=== PATIENT | male | born 1950 | race Caucasian/White ===

== ENCOUNTER → 2016-06-25 | Outpatient (CLI) | payer OTHER ==
[~2016-06-25] MED LIST: ALPR0.25 PO; ASPCH81X PO; GLIP10TA3 PO; INSU1INJ33; LISI-787 PO; MULT-506 PO; OMEG10007 PO; OMEG340C PO; PRAV20TA PO; SITA1TAB27 PO
[2016-06-25 13:35] LABS: ESTIMATED AVERAGE GLUCOSE 148 mg/dl; HA1C FLAG Normal (Normal)
[2016-06-25 13:54] LABS: ALKALINE PHOSPHATASE 109 U/L (45-117); ALT/SGPT 41 U/L (12-78); AST/SGOT 25 U/L (15-37); BLOOD UREA NITROGEN 25 mg/dl (7-18); BUN/CREATININE RATIO 15.6 (10-20); CALCIUM 9.1 mg/dl (8.5-10.1); CARBON DIOXIDE 26 mmol/L (21-32); CHLORIDE 104 mmol/L (98-107); GLUCOSE 111 mg/dl (70-99); POTASSIUM 3.9 mmol/L (3.5-5.1); SODIUM 141 mmol/L (136-145)
[2016-06-25 14:01] LABS: CHOLESTEROL 145 mg/dl (0-200); CHOLESTEROL/HDL RATIO 3.5; HDL CHOLESTEROL 41 mg/dl; LDL CHOLESTEROL CALCULATED 74 mg/dl; TRIGLYCERIDES 149 mg/dl (0-150); VERY LOW DENSITY LIPOPROT CALC 30 mg/dl
== END | disposition home or self-care (01) ==
LOC: C.LABMFLN 10:06
PROVIDERS: ATTEND Family Medicine
DX: E11.9 Type 2 diabetes mellitus without complications (principal); E78.5 Hyperlipidemia, unspecified; I10 Essential (primary) hypertension; E78.00 Pure hypercholesterolemia, unspecified; Z12.5 Encounter for screening for malignant neoplasm of prostate

== ENCOUNTER → 2016-10-31 | Outpatient (CLI) | payer OTHER ==
[2016-10-31 14:41] LABS: ESTIMATED AVERAGE GLUCOSE 169 mg/dl; HA1C FLAG Normal (Normal)
[2016-10-31 14:46] LABS: ALT/SGPT 38 U/L (12-78); BLOOD UREA NITROGEN 31 mg/dl (7-18); BUN/CREATININE RATIO 17.4 (10-20); CALCIUM 9.2 mg/dl (8.5-10.1); CARBON DIOXIDE 26 mmol/L (21-32); CHLORIDE 103 mmol/L (98-107); CHOLESTEROL 163 mg/dl (0-200); GLUCOSE 77 mg/dl (70-99); POTASSIUM 4.2 mmol/L (3.5-5.1); SODIUM 139 mmol/L (136-145); TRIGLYCERIDES 209 mg/dl (0-150); VERY LOW DENSITY LIPOPROT CALC 42 mg/dl
[2016-10-31 14:49] LABS: ALB/GLOB RATIO 1.1 (0.9-2); ALKALINE PHOSPHATASE 94 U/L (45-117); AST/SGOT 18 U/L (15-37); CHOLESTEROL/HDL RATIO 4.5; HDL CHOLESTEROL 36 mg/dl; LDL CHOLESTEROL CALCULATED 85 mg/dl
== END | disposition home or self-care (01) ==
LOC: C.LABMFLN 07:20
PROVIDERS: ATTEND Family Medicine
DX: E11.9 Type 2 diabetes mellitus without complications (principal); E78.00 Pure hypercholesterolemia, unspecified

== ENCOUNTER → 2016-12-02 | Outpatient (CLI) | payer OTHER | END | disposition home or self-care (01) | LOC: C.PATHSPEC 17:20 | PROVIDERS: ATTEND Plastic Surgery | DX: C44.329 Squamous cell carcinoma of skin of other parts of face (principal) ==

== ENCOUNTER → 2016-12-17 | Outpatient (CLI) | payer OTHER ==
[2016-12-17 13:10] LABS: BASO % 0.3 %; BASO ABS # 0.02 K/uL (0-0.2); COMPLETE YES; EOS % 2.8 %; HEMATOCRIT 40.6 % (42-52); IG% 0.3 %; LYMPH ABS # 1.56 K/uL (1.2-3.4); MEAN CELL VOLUME 85.3 fL (80-100); MEAN CORPUSCULAR HEMOGLOBIN 31.7 pg (25-34); MEAN CORPUSCULAR HGB CONC 37.2 g/dl (32-36); MEAN PLATELET VOLUME 10.4 fL (7.4-10.4); MONO % 12.4 %; NEUT % 62.2 %; PLATELET COUNT 169 K/uL (130-400); RED BLOOD COUNT 4.76 M/uL (4.7-6.1); WHITE BLOOD COUNT 7.08 K/uL (4.8-10.8)
[2016-12-17 13:23] LABS: PROTHROMBIN TIME (PATIENT) 10.7 SECONDS (9.0-12.0)
[2016-12-17 13:41] LABS: BLOOD UREA NITROGEN 24 mg/dl (7-18); GLUCOSE 230 mg/dl (70-99)
[2016-12-17 13:42] LABS: BUN/CREATININE RATIO 13.6 (10-20); CALCIUM 9.3 mg/dl (8.5-10.1); CARBON DIOXIDE 30 mmol/L (21-32); CHLORIDE 101 mmol/L (98-107); POTASSIUM 4.1 mmol/L (3.5-5.1); SODIUM 138 mmol/L (136-145)
== END | disposition home or self-care (01) ==
LOC: C.CPL 12:37
PROVIDERS: ATTEND Plastic Surgery
DX: L98.9 Disorder of the skin and subcutaneous tissue, unspecified (principal); I49.3 Ventricular premature depolarization

== ENCOUNTER → 2016-12-23 | Day surgery (SDC) | payer OTHER ==
[2016-12-22 10:21] VITALS: Ht 175.3 cm; Wt 103.6 kg
[~2016-12-23] VITALS: Ht 175.3 cm; Wt 103.6 kg
[~2016-12-23] MED LIST changes: +ALPRAZOLAM 0.25 MG TAB PO PRN; +ATROPINE SULFATE 0.1 MG/ML 5ML SYR IV PRN; +BACITRACIN OINT 15 GM TUBE ONE; +CEFAZOLIN 2000 MG/60 ML D5W IV SCH; +EpHEDrine SULFATE INJ 50 MG/ML AMP IV PRN; +FENTANYL CITRATE INJ 50 MCG/1 ML 2 ML VIAL IV PRN; +FENTANYL CITRATE INJ 50 MCG/1 ML 2 ML VIAL ONE; +FLUMAZENIL 0.1 MG/1 ML 10 ML VIAL IV PRN; +GENTIAN VIOLET TOP SOLN DROP CHARGE TOP ONE; +HYDROCODONE/ACETAMOPHEN 5/325MG TAB PO PRN; +HYDROmorphone INJ 2 MG/ML SYR/VIAL IV PRN; +INSULIN HUMAN REGULAR SC SCH; +LABETALOL HCL IV 5 MG/ML 20ML IV PRN; +LACTATED RINGER'S 1000ML 1,000 ML IV SCH; +LIDOCAINE HCL 2% 2 ML VIAL (20MG/ML) ONE; +LIDOCAINE/EPINEPHRINE 1% INJ 50 ML VIAL ONE; +LISINOPRIL/HCTZ 20/12.5MG TAB PO SCH; +MEPERIDINE HCL 25 MG/ML CARP IV PRN; +METOCLOPRAMIDE HCL INJ 5 MG/ML 2 ML VIAL IV PRN; +MIDAZOLAM HCL 1 MG/ML 2ML VIAL ONE; +MULTIVITAMIN TAB PO SCH; +MoRPHine SULFATE 2 MG/ML CARP IV PRN; +MoRPHine SULFATE 4 MG/ML 1 ML CARP\\VIAL IV PRN; +NALOXONE HCL 0.4 MG/1 ML VIAL/CARP IV PRN; +NovoLIN-R INSULIN PER UNIT CHARGE ONE; +ONDANSETRON INJ 2 MG/ML 2 ML VIAL IV PRN; +PATIENT'S ALLERGY INFO NEEDS ENTERED SCH; +PHENYLEPHRINE 100MCG/ML 5ML SYR IV PRN; +POVIDONE-IODINE OP SOLN 30 ML BTL ONE; +PRAVASTATIN SOD 20 MG TAB PO SCH; +PROPOFOL IV EMULSION 10 MG/ML 20 ML VIAL IV ONE; +SITAGLIPTIN 100 MG TAB PO SCH; +SODIUM CHLORIDE 0.9% 1000ML 1,000 ML IV SCH
--- NOTE | 2016-12-23 08:32 | History & Physical Bridge - [place] ---
H&P Re-Evaluation Bridge Note: I have examined the patient, reviewed the History & Physical and in the interval since the performance of the History & Physical I have noted the following changes of clinical significance: No changes noted
--- NOTE | 2016-12-23 10:57 | [facility] Post Operative Brief Note ---
Immediate Operative Summary Operative Date Dec 23, 2016. Pre-Operative Diagnosis Left Forehead Squamous Cell Carcinoma Post-Operative Diagnosis same Procedure(s) Performed Left Forehead Excison Squamous Cell Carcinoma, Frozen Section, Rotational Flap Closure Surgeon Dr Ibrahim Coupon Clerk Surgeon(s) none Estimated Blood Loss 25ml Findings well differentiated SCC, all margins negative Specimens A: Excision squamous cell carcinoma left forehead stitch armando 12 o'clock B: Old deep margin left forehead Anesthesia local with sedation Complication(s) None Disposition Recovery Room / PACU
--- NOTE | 2016-12-23 11:04 | Anesthesia Progress Nt - [facility] ---
Anesthesia Post Op Note Date & Time Dec 23, 2016 at 11:04 Vital Signs Pain Intensity: 0 Vital Signs Past 12 Hours Date Time Temp Pulse Resp B/P (MAP) Pulse Ox O2 Delivery O2 Flow Rate FiO2 12/23/16 07:20 36.8 93 16 128/93 (105) 95 Room Air Notes Mental Status: alert / awake / arousable, participated in evaluation Pt Amnestic to Procedure: Yes Nausea / Vomiting: adequately controlled Pain: adequately controlled Airway Patency, RR, SpO2: stable & adequate BP & HR: stable & adequate Hydration State: stable & adequate Anesthetic Complications: no major complications apparent
--- NOTE | 2016-12-23 11:19 | Discharge Instructions-SurgCtr ---
Discharge Instructions Date of Service Dec 23, 2016. Visit Reason for Visit: Left Forehead Squamous Cell Carcinoma Discharge Discharge Diagnosis / Problem: squamous cell carcinoma left forehead Discharge Goals Goal(s): Decrease discomfort, Improve function Medications Stopped Medications Name(s): Arsen Keene 12/17/16. Activity Recommendations Activity Limitations: as noted below Anesthesia . Post Anesthesia Instructions: If you have had General Anesthesia or IV Sedation: * Do not drive today. * Resume driving when surgeon permits. * Do not make important decisions or sign legal documents today. * Call surgeon for: 1. Temperature elevations greater than 101 degrees F. 2. Uncontrollable pain. 3. Excessive bleeding. 4. Persistent nausea and vomiting. 5. Medication intolerance (nausea, vomiting or rash). * For nausea and vomiting use only clear liquids such as: tea, soda, bouillon until nausea subsides, then gradually increase diet as tolerated. * If you have any concerns or questions, call your surgeon's office. If physician is unavailable and it is an emergency, call 911 or go to the nearest emergency room. . Instructions / Follow-Up Instructions / Follow-Up ACTIVITY RECOMMENDATIONS: __Normal activities _x_No bending, lifting or straining __No driving _x_Driving allowed when you are off pain medications _x_Walking permitted __You should have help at home for ___ days DRESSINGS: __No dressings required _x_Keep dressings dry/in place until first office visit __Remove dressings ___ and leave dressings off __Apply ice ___ days __Remove dressings and reapply garment __Apply antibiotic ointment (Bacitracin, Neosporin, etc) to wounds 3-4 times/ day for 10 days BATHING: _x_Keep dressings dry _x_Sponge bathing permitted __Showering permitted _x_No swimming, hot tubs or soaking in a tub MEDICATIONS: Resume previous medications unless instructed otherwise by your surgeon. __Do not use aspirin, Motrin, Advil or Ibuprofen as these may promote bleeding. Please use Tylenol. _x_Prescription(s) provided: pain script provided in office OTHER INSTRUCTIONS: __Record drain output 2-3 times per day SPECIAL CARE INSTRUCTIONS: * It is normal to have a mild fever after surgery. If your temperature is higher than 101.5 degrees F, please call the office at [phone]. * Constipation is a typical side effect of pain medication. An over-the- counter stool softener will help relieve this. * Leaking around surgical drains may occur and should not cause concern. Sometimes these drains become clogged. If this happens, remove the bulb and milk the clot out of the tube, then replace the bulb. * Drainage from wounds after liposuction is normal and should be expected. Garments will become soiled. You should protect furniture and bedding. This drainage should mostly subside within 2-3 days. Leave garments in place unless instructed to remove them. * If you have unusual drainage from a wound or are concerned you have an infection or have any questions or concerns, please call the office at [phone]. FOLLOW UP VISIT: If not already scheduled, please call the office, , when you return home after surgery to schedule an appointment to be seen in _2__ days. Diet Recommendations Home Diet: diabetes diet Procedures Procedures Performed: Left Forehead Excison Squamous Cell Carcinoma, Frozen Section, Rotational Flap Closure Pending Studies Studies pending at discharge: no Medical Emergencies . Who to Call and When: Medical Emergencies: If at any time you feel your situation is an emergency, please call 911 immediately. . Non-Emergent Contact Non-Emergency issues call your: Primary Care Provider, Surgeon Call Non-Emergent contact if: temperature is above 101.5, your pain is not controlled, wound has increased drainage . . "Provider Documentation" section prepared by Sailaja Ibrahim. . [place] Drug Monitoring Program Drug Monitoring Findings: PDMP checked, no issues identified
[2016-12-23 11:30] VITALS: BP 122/77; PULSE 77; TEMP 36.3; O2SAT 96
--- NOTE | 2016-12-24 11:08 | OPERATIVE REPORT ---
DATE OF OPERATION: 12/23/2016 PREOPERATIVE DIAGNOSIS: Left forehead squamous cell carcinoma. POSTOPERATIVE DIAGNOSIS: Same. PROCEDURE: Excision squamous cell carcinoma left forehead with frozen section and flap closure. SURGEON: Dr. Sailaja Ibrahim. SCREEN MACHINE OPERATOR: VEL Langston. ANESTHESIA: Local with sedation. COMPLICATIONS: None. INDICATION FOR THE PROCEDURE: The patient is a 66-year-old male who presented to my office at the request of his primary care physician regarding an enlarging lesion of the left forehead. Biopsy of this lesion showed squamous cell carcinoma. Given its large size and location, we elected to proceed with further excision in the operating room with frozen section. BRIEF DESCRIPTION OF THE PROCEDURE: Risks, benefits and alternatives of the procedure were explained to the patient who agreed and signed consent. He was identified and marked in the preoperative holding area. He was brought to the operating room where he was positioned supine and placed under sedation without incident. Surgical site was prepped and draped sterilely. A timeout procedure was performed. Planned excision was marked. This included the prior biopsy site as well as peripheral erythema and an area of adjacent skin changes concerning for at least squamous cell carcinoma in situ. Lidocaine 1% with epinephrine was used to anesthetize the area. A 15 blade scalpel made the incision into underlying subcutaneous fat. Lesion was removed at this level. Of note, centrally, underneath the lesion, lesion appeared to be transected during this excision. Therefore, the skin was sent to the lab for frozen section with suture marking at 12 o'clock and a second deep margin specimen was immediately sent which included some of the frontalis muscle. The maximal excision diameter was 4 x 2 cm. Hemostasis was achieved with electrocautery. Following a phone call from the laboratory revealing well-differentiated squamous cell carcinoma with negative peripheral and deep margins, wound closure was begun. The wound was oriented predominantly horizontally with the medial aspect being somewhat more narrow and with a semicircular shape inferiorly. Therefore, I was able to advance a portion of this for primary closure using the natural rotation of the prior skin incision. However, laterally, wound was quite wide and would be unable to be closed primarily without significantly elevating the left eyebrow. Therefore, a rotational flap was designed using skin from the lateral forehead. Lidocaine 1% with epinephrine was used to anesthetize the planned incisions. A 15 blade scalpel made the incision and flap was raised in the subcutaneous plane. It was advanced into the defect. Undermining was performed cephalad toward the scalp to help facilitate closure of the donor site. The flap was inset and the medial aspect of the wound was closed using 4-0 Vicryl interrupted sutures. Skin was closed using 6-0 Prolene interrupted sutures and running suture. At the end of the case, flaps appeared viable and wound was well approximated with only minimal elevation of the left eyebrow. Bacitracin and Telfa dressing were applied. The procedure was tolerated well. The patient was awakened and transferred to recovery in satisfactory condition. I attest to the content of the Intraoperative Record and any orders documented therein. Any exception s are noted below.
== END | disposition home or self-care (01) ==
LOC: X.SURG 06:46
PROVIDERS: ATTEND Plastic Surgery
DX: C44.329 Squamous cell carcinoma of skin of other parts of face (principal); E11.9 Type 2 diabetes mellitus without complications; I10 Essential (primary) hypertension; K21.9 Gastro-esophageal reflux disease without esophagitis; Z79.82 Long term (current) use of aspirin; Z79.899 Other long term (current) drug therapy

== ENCOUNTER → 2017-04-10 | Outpatient (CLI) | payer OTHER ==
[~2017-04-10] MED LIST changes: -ALPRAZOLAM 0.25 MG TAB PO PRN; -ASPCH81X PO; -ATROPINE SULFATE 0.1 MG/ML 5ML SYR IV PRN; -BACITRACIN OINT 15 GM TUBE ONE; -CEFAZOLIN 2000 MG/60 ML D5W IV SCH; -EpHEDrine SULFATE INJ 50 MG/ML AMP IV PRN; -FENTANYL CITRATE INJ 50 MCG/1 ML 2 ML VIAL IV PRN; -FENTANYL CITRATE INJ 50 MCG/1 ML 2 ML VIAL ONE; -FLUMAZENIL 0.1 MG/1 ML 10 ML VIAL IV PRN; -GENTIAN VIOLET TOP SOLN DROP CHARGE TOP ONE; -HYDROCODONE/ACETAMOPHEN 5/325MG TAB PO PRN; -HYDROmorphone INJ 2 MG/ML SYR/VIAL IV PRN; -INSULIN HUMAN REGULAR SC SCH; -LABETALOL HCL IV 5 MG/ML 20ML IV PRN; -LACTATED RINGER'S 1000ML 1,000 ML IV SCH; -LIDOCAINE HCL 2% 2 ML VIAL (20MG/ML) ONE; -LIDOCAINE/EPINEPHRINE 1% INJ 50 ML VIAL ONE; -LISINOPRIL/HCTZ 20/12.5MG TAB PO SCH; -MEPERIDINE HCL 25 MG/ML CARP IV PRN; -METOCLOPRAMIDE HCL INJ 5 MG/ML 2 ML VIAL IV PRN; -MIDAZOLAM HCL 1 MG/ML 2ML VIAL ONE; -MULTIVITAMIN TAB PO SCH; -MoRPHine SULFATE 2 MG/ML CARP IV PRN; -MoRPHine SULFATE 4 MG/ML 1 ML CARP\\VIAL IV PRN; -NALOXONE HCL 0.4 MG/1 ML VIAL/CARP IV PRN; -NovoLIN-R INSULIN PER UNIT CHARGE ONE; -OMEG10007 PO; -OMEG340C PO; -ONDANSETRON INJ 2 MG/ML 2 ML VIAL IV PRN; -PATIENT'S ALLERGY INFO NEEDS ENTERED SCH; -PHENYLEPHRINE 100MCG/ML 5ML SYR IV PRN; -POVIDONE-IODINE OP SOLN 30 ML BTL ONE; -PRAVASTATIN SOD 20 MG TAB PO SCH; -PROPOFOL IV EMULSION 10 MG/ML 20 ML VIAL IV ONE; -SITAGLIPTIN 100 MG TAB PO SCH; -SODIUM CHLORIDE 0.9% 1000ML 1,000 ML IV SCH
[2017-04-10 13:08] LABS: ESTIMATED AVERAGE GLUCOSE 212 mg/dl; HA1C FLAG Normal (Normal)
[2017-04-10 13:20] LABS: ALT/SGPT 61 U/L (12-78); AST/SGOT 43 U/L (15-37); BLOOD UREA NITROGEN 30 mg/dl (7-18); BUN/CREATININE RATIO 16.4 (10-20); CALCIUM 8.9 mg/dl (8.5-10.1); CARBON DIOXIDE 29 mmol/L (21-32); CHLORIDE 103 mmol/L (98-107); CHOLESTEROL 150 mg/dl (0-200); CREATININE 1.82 mg/dl (0.60-1.40); GLUCOSE 155 mg/dl (70-99); POTASSIUM 4.1 mmol/L (3.5-5.1); SODIUM 136 mmol/L (136-145)
[2017-04-10 13:22] LABS: ALKALINE PHOSPHATASE 119 U/L (45-117); CHOLESTEROL/HDL RATIO 4.1; HDL CHOLESTEROL 37 mg/dl; LDL CHOLESTEROL CALCULATED 67 mg/dl; TRIGLYCERIDES 229 mg/dl (0-150); VERY LOW DENSITY LIPOPROT CALC 46 mg/dl
== END | disposition home or self-care (01) ==
LOC: C.LABMFLN 08:22
PROVIDERS: ATTEND Family Medicine
DX: E11.9 Type 2 diabetes mellitus without complications (principal); I10 Essential (primary) hypertension; E78.00 Pure hypercholesterolemia, unspecified

== ENCOUNTER → 2017-08-25 | Outpatient (CLI) | payer OTHER ==
[2017-08-25 13:26] LABS: BLOOD UREA NITROGEN 25 mg/dl (7-18); CREATININE 1.82 mg/dl (0.60-1.40); GLUCOSE 159 mg/dl (70-99)
[2017-08-25 13:27] LABS: ALBUMIN 3.7 gm/dl (3.4-5.0); ALT/SGPT 53 U/L (12-78); AST/SGOT 35 U/L (15-37); CALCIUM 9.1 mg/dl (8.5-10.1); CARBON DIOXIDE 29 mmol/L (21-32); CHOLESTEROL 146 mg/dl (0-200); POTASSIUM 3.8 mmol/L (3.5-5.1); SODIUM 139 mmol/L (136-145)
[2017-08-25 13:30] LABS: HEMOGLOBIN A1C 8.2 % (4.5-5.6)
[2017-08-25 13:31] LABS: ALKALINE PHOSPHATASE 105 U/L (45-117); LDL CHOLESTEROL CALCULATED 68 mg/dl; TOTAL PROTEIN 7.2 gm/dl (6.4-8.2)
== END | disposition home or self-care (01) ==
LOC: C.LABMFLN 09:21
PROVIDERS: ATTEND Family Medicine
DX: E11.9 Type 2 diabetes mellitus without complications (principal); E78.5 Hyperlipidemia, unspecified; I10 Essential (primary) hypertension; Z12.5 Encounter for screening for malignant neoplasm of prostate

== ENCOUNTER 2023-08-12 16:21 | Inpatient (IN) ==
--- NOTE | 2023-08-12 16:29 | ED Triage Note ---
Date of Service August 12, 2023 Provider in Triage Author: Kristen Pollack History of Present Illness This patient was briefly evaluated while in triage. An abbreviated physical exam was performed. This patient is a 73-year-old Male who presents to the ED for evaluation of SOB intermittently for the past couple of days as well as weakness. Denies chest pain. Denies abdominal pain, nausea, or vomiting. Has been losing a lot of weight. History of metastatic melanoma to multiple areas. History of radiation and chemo in the past, but not on anything currently. He keeps filling up with fluid in his abdomen and legs per and his legs feel very swollen and heavy. Not eating well and losing weight. He is on Plavix. Physical Exam GENERAL: Chronically ill in appearance, but in no acute distress. HEENT: Pupils equal. No obvious scleral icterus. HEART: Regular rate and rhythm. LUNGS: Clear to auscultation. No accessory muscle use. ABDOMEN: Soft, mildly tender to palpation. NEURO: Alert and oriented. No obvious neurological deficits on quick neuro exam. MUSCULOSKELETAL: Bilateral lower extremities edematous. Initial orders for labs and / or imaging were placed and patient was placed in the waiting area until a bed is available. Please see further documentation for the full ED course. MDM / Impression Impression Impression: Influenza, Hypoglycemia, Metastatic melanoma, Pleural effusion, Pathologic rib fracture Impression: Pathologic rib fracture Qualifiers: Encounter type: initial encounter Qualified Code(s): M84.48XA - Pathological fracture, other site, initial encounter for fracture
[2023-08-12 17:26] LABS: Basophils # (auto) 0.03 K/uL (0.00-0.20); Basophils % (auto) 0.3 %; Eosinophils # (auto) 0.04 K/uL (0.00-0.50); Eosinophils % (auto) 0.4 %; Hematocrit (blood only) 42.4 % (42.0-52.0); Hemoglobin 15.1 g/dl (14.0-18.0); Immature Granulocytes # (auto) 0.06 K/uL (0.01-0.20); Immature Granulocytes % (auto) 0.6 %; Lymphocytes # (auto) 1.08 K/uL (1.20-3.40); Mean Corpuscular Hemoglobin 31.9 pg (25.0-34.0); Mean Corpuscular Hgb Conc 35.6 g/dL (32.0-36.0); Mean Corpuscular Volume 89.5 fL (80.0-100.0); Monocytes % (auto) 9.1 %; Neutrophils # (auto) 7.73 K/uL (1.40-6.50); Neutrophils % (auto) 78.6 %; Platelet Count 276 K/uL (130-400); RDW Standard Deviation 55.4 fL (36.4-46.3); Red Blood Count 4.74 M/uL (4.70-6.10); White Blood Count 9.84 K/ul (4.8-10.8)
[2023-08-12 17:38] LABS: INR 1.1 (0.9-1.1); Partial Thromboplastin Ratio 1.1; Partial Thromboplastin Time 30 Seconds (21-31); Prothrombin Time 12.1 Seconds (9.0-12.0)
[2023-08-12 17:41] LABS: Albumin Level 2.8 gm/dl (3.4-5.0); Anion Gap 12 (3-11); Bilirubin,Total 3.7 mg/dl (0.2-1.0); Calcium 8.7 mg/dl (8.6-10.3); Carbon Dioxide 31 mmol/L (21-32); Chloride 93 mmol/L (98-107); Magnesium 1.7 mg/dl (1.7-2.4); Potassium 3.3 mmol/L (3.5-5.1); Sodium 136 mmol/L (136-145)
[2023-08-12 17:51] LABS: Alanine Aminotransferase 37 U/L (7-52); Albumin Globulin Ratio 0.9 (0.9-2); Alkaline Phosphatase 709 U/L (34-104); Aspartate Aminotransferase 80 U/L (13-39); BUN Creatinine Ratio 35.8 (10-20); Blood Urea Nitrogen 44 mg/dl (6-23); Est GFR (African American) 66.1 ml/min; Est GFR (Non-African American) 57.1 ml/min; Globulin 3.2 gm/dl (2.5-4.0); Glucose 38 mg/dl (70-99(Fasting)); Lipase 21 U/L (11-82)
[2023-08-12 17:56] LABS: Troponin I High Sensitivity 18.7 pg/ml (0-20)
[2023-08-12] MEDS: DEXTROSE 50% 50 ML SYRINGE IV ONE (18:14)
--- NOTE | 2023-08-12 18:25 | Emergency Department Note ---
History of Present Illness General Chief Complaint: Shortness of Breath/Dyspnea Stated Complaint: SOB/FLUID BUILD UP,CANCER PATIENT, EDEMA HAND/FEET Time Seen by Provider: 08/12/23 18:05 History of Present Illness Provider Complaint: shortness of breath Onset (ago): week(s) (2) Consistency/Duration: + progressively worsening Relieved By: + nothing Exacerbated By: + exertion and + coughing Known history of: congestive heart failure Associated symptoms: + cough; no fever, no wheezing, no sputum production, no lower extremity pain, no polyuria, no nausea/vomiting or no abdominal pain HPI Narrative: Patient has metastatic melanoma that has metastasized to his lungs liver and bones. at bedside reports that the patient was recently admitted to [facility] [address] and she states that all they did was give him Oxy IR and she took him off of it because she did not like that it was making him more tired and confused. reports no recent fall or trauma Home Medications Medication Instructions Recorded Confirmed Type pen needle, diabetic 31 gauge x #100 ea 11/23/18 08/12/23 Rx 5/16" (BD Ultra-Fine Short Pen Needle) hydrocortisone 2.5 % topical cream 1 appln IA BID PRN hemorrhoids #30 03/31/19 08/12/23 Rx with perineal applicator grams blood sugar diagnostic #200 ea 01/21/22 08/12/23 Rx nitroglycerin 0.4 mg sublingual 0.4 mg sublingual Q5M PRN chest 07/23/22 08/12/23 Rx tablet (Nitrostat) pain #25 tabs atorvastatin 20 mg tablet 20 mg PO HS #90 tabs 01/18/23 08/12/23 Rx magnesium oxide 400 mg PO DAILY #90 tabs 01/23/23 08/12/23 Rx clopidogrel 75 mg tablet 75 mg PO DAILY #90 tabs 05/13/23 08/12/23 Rx Lift Chair #1 ea 06/04/23 08/12/23 Rx elevated toilet seat with support #1 ea 06/04/23 08/12/23 Rx rails furosemide 40 mg tablet 40 mg PO DAILY #90 tabs 06/29/23 08/12/23 Rx acetaminophen 325 mg capsule 650 mg PO QID PRN Fever Or Pain 06/30/23 08/12/23 History loratadine 10 mg tablet (Claritin) 10 mg PO DAILY 06/30/23 08/12/23 History montelukast 10 mg tablet 10 mg PO QPM 06/30/23 08/12/23 History (Singulair) insulin NPH-regular 70-30 U-100 See Rx Instructions subcut .COMPLEX 07/09/23 08/12/23 History insulin 100 unit/mL subcutaneous pen naloxone 4 mg/actuation nasal 4 mg intranasal Q3M PRN opioid 07/09/23 08/12/23 Rx spray (Narcan) overdose #2 ea spironolactone 25 mg tablet 25 mg PO DAILY #90 tabs 07/30/23 08/12/23 Rx pantoprazole 20 mg tablet,delayed 20 mg PO DAILY #30 tabs 08/04/23 08/12/23 Rx release alprazolam 0.25 mg tablet 0.25 mg PO TID PRN anxiety #90 tabs 08/10/23 08/12/23 Rx aspirin 81 mg tablet,delayed 81 mg PO DAILY 08/12/23 08/12/23 History release oseltamivir 75 mg capsule (Tamiflu) 75 mg PO BID 5 days #10 caps 08/12/23 Rx tramadol 50 mg tablet 50 - 100 mg PO TID PRN pain 08/12/23 08/12/23 History trazodone 50 mg tablet 50 mg PO HS 08/12/23 08/12/23 History Allergies Allergy/AdvReac Type Severity Reaction Status Date / Time rosuvastatin [From Crestor] AdvReac Intermediate myalgia Verified 08/12/23 22:49 escitalopram AdvReac Mild Insomnia Verified 08/12/23 22:50 Past Med/Surg History Medical History Clavicular fracture Confusion Subarachnoid hemorrhage Right humeral fracture HFrEF (heart failure with reduced ejection fraction) Neurologic gait dysfunction Metastatic melanoma Right fibular fracture Pelvic mass Metastatic carcinoma Abnormal CT scan, chest Abnormal x-ray of thoracic spine Abnormal chest x-ray Left-sided chest wall pain Thoracic radiculopathy Pain of left scapula Myalgia Left shoulder pain Bilateral shoulder pain Coronary artery disease Chest pain Type 2 diabetes mellitus treated with insulin Cough Asymptomatic microscopic hematuria Medicare annual wellness visit, subsequent Prostate cancer screening COVID-19 virus infection Tested positive on March 23, 2020 Herpes zoster of eye Exposure to COVID-19 virus History of SCC (squamous cell carcinoma) of skin Personal history of malignant melanoma of skin Actinic keratoses Asthmatic bronchitis Benign essential hypertension Eye problems GERD without esophagitis Hypercholesterolemia Hyperlipidemia Need for influenza vaccination Open wound, hand Prostate cancer screening Type 2 diabetes mellitus Surgical History Status post coronary artery stent placement Hx of cataract removal with insertion of prosthetic lens bilat Mar 2022 History of tonsillectomy History of adenoidectomy History of shoulder surgery History of elbow surgery History of arthroscopy of right knee History of decompression of median nerve Family History Other No pertinent family history Social History Smoking Status: Never smoker Hx Alcohol Use: No Hx Substance Use: No Preferred Language: Uzbek Communication Ability: Effective Visual Impairment: No Limitations Hearing Ability: Normal Concrete Craftsman Required: No Beliefs That Will Affect Care: None marital status: Current Living Situation: Spouse current occupational status: employed and retired How many Children do You have Comment: 1 adopted daughter Feels Safe at Home: Yes Childhood Exposure to Second-Hand Smoke: No Diet: regular caffeine: No Dental Care, Regularly: Yes Physical Activity Frequency: Does not Exercise Seatbelt Use: always Sunscreen Use: Yes Assistive Devices: Glasses Physical Exam 2 Vital Signs: Vital Signs - 24 hr 08/12/23 16:25 08/12/23 16:25 08/12/23 16:25 Temperature 36.2 C L Temperature Source Temporal Artery Sc an Pulse Rate 90 Pulse Rate [Apical ] Pulse Rate from Sp O2 Sensor Pulse Rhythm [Apic al] Respiratory Rate 16 Respiratory Effort / Characteristics Non-Labored Sponta neous Non-Labored Sponta neous Respiratory Depth Normal Respiratory Patter n Blood Pressure 102/67 Blood Pressure [Ri ght Arm] Blood Pressure Danii n 78 Blood Pressure Danii n [Right Arm] Blood Pressure Pos ition [Right Arm] Pulse Oximetry 94 94 Oxygen Delivery Me thod Room Air Room Air Sepsis New/Unexpla ined Change in Men pj Status No Sepsis Action Take n by Nursing No Action Required 08/12/23 18:11 08/12/23 18:23 08/12/23 18:29 Temperature Temperature Source Pulse Rate 89 Pulse Rate [Apical ] 87 Pulse Rate from Sp O2 Sensor Pulse Rhythm [Apic al] Respiratory Rate 18 Respiratory Effort / Characteristics Non-Labored Sponta neous Respiratory Depth Normal Respiratory Patter n Regular Blood Pressure Blood Pressure [Ri ght Arm] 120/75 Blood Pressure Danii n Blood Pressure Danii n [Right Arm] 90 Blood Pressure Pos ition [Right Arm] Pulse Oximetry 96 Oxygen Delivery Me thod Room Air Room Air Sepsis New/Unexpla ined Change in Men pj Status Sepsis Action Take n by Nursing 08/12/23 19:30 08/12/23 19:30 08/12/23 20:00 Temperature Temperature Source Pulse Rate 76 78 Pulse Rate [Apical ] Pulse Rate from Sp O2 Sensor 76 77 Pulse Rhythm [Apic al] Respiratory Rate 20 18 Respiratory Effort / Characteristics Respiratory Depth Respiratory Patter n Blood Pressure 108/63 Blood Pressure [Ri ght Arm] Blood Pressure Danii n 83 Blood Pressure Danii n [Right Arm] Blood Pressure Pos ition [Right Arm] Pulse Oximetry 93 93 Oxygen Delivery Me thod Room Air Sepsis New/Unexpla ined Change in Men pj Status Sepsis Action Take n by Nursing 08/12/23 20:00 08/12/23 20:30 08/12/23 20:30 Temperature Temperature Source Pulse Rate 73 Pulse Rate [Apical ] Pulse Rate from Sp O2 Sensor 74 Pulse Rhythm [Apic al] Respiratory Rate 17 Respiratory Effort / Characteristics Respiratory Depth Respiratory Patter n Blood Pressure 111/67 114/71 Blood Pressure [Ri ght Arm] Blood Pressure Danii n 73 85 Blood Pressure Danii n [Right Arm] Blood Pressure Pos ition [Right Arm] Pulse Oximetry 93 Oxygen Delivery Me thod Sepsis New/Unexpla ined Change in Men pj Status Sepsis Action Take n by Nursing 08/12/23 20:41 08/12/23 21:00 08/12/23 21:00 Temperature Temperature Source Pulse Rate 73 Pulse Rate [Apical ] 78 Pulse Rate from Sp O2 Sensor 75 Pulse Rhythm [Apic al] Regular Respiratory Rate 22 16 Respiratory Effort / Characteristics Non-Labored Sponta neous Respiratory Depth Normal Respiratory Patter n Regular Blood Pressure 107/69 Blood Pressure [Ri ght Arm] 114/71 Blood Pressure Danii n 77 Blood Pressure Danii n [Right Arm] 85 Blood Pressure Pos ition [Right Arm] Lying Pulse Oximetry 94 94 Oxygen Delivery Me thod Room Air Sepsis New/Unexpla ined Change in Men pj Status Sepsis Action Take n by Nursing Physical Exam: Physical Exam HENT: Exam performed. - Head: Normocephalic and atraumatic. NECK: Normal range of motion. Neck supple. No JVD present. CV: Normal rate, regular rhythm, normal heart sounds and intact distal pulses. 2+ pitting edema of the bilateral lower extremities. Palpable radial pulses bue. PULM/CHEST: Rales and rhonchi bilaterally. ABD: The abdomen is soft. No distention. No pain on palpation of the abdomen. NEURO: Motor and sensation grossly intact. SKIN: Diffuse ecchymosis over his bilateral upper extremities. Course Course 180: The patient was evaluated in room A9. A complete history and physical exam was performed Cardiac monitoring: An order was placed for continuous cardiac monitoring. The monitor shows a rate of 90 with sinus rhythm interpreted by me Patient was seen during a time of extreme volume and extreme acuity in the emergency department. Nursing triage protocols were initiated and labs were drawn by protocol in the triage area. Patient's glucose was 38. Patient was given 1 amp of D50. 2100: Vital signs stable. Labs show white blood cell count 9.84 hemoglobin 15.1 coagulation studies within normal limits. VBG shows a venous pH of 7.49. Potassium 3.3. POC glucose improved after 1 amp of D50. Total bilirubin 3.7. Alkaline phosphatase 709. Patient is influenza positive. Imaging shows no pulmonary embolus but does show possible pathological fractures with bilateral pleural effusions. Given the patient is influenza positive, immunosuppressed, and has bilateral pleural effusions, the patient will be treated empirically for influenza as well as any superimposed bacterial pneumonia on the influenza. Patient treated with Tamiflu as well as vancomycin and Zosyn. Patient will be admitted to the [facility] team. Administered Medications Dextrose (Dextrose 50% 50 Ml Syringe) 25 - 50 ml IV UD PRN; Protocol PRN Reason: Hypoglycemia Protocol Stop: 09/11/23 21:28 Last Admin: 08/12/23 22:56 Dose: 25 ml Documented By: YUMI Insulin Aspart (Insulin Aspart Per Unit Charge) 0 units SC Q4H DEBORA Stop: 09/11/23 21:29 Last Admin: 08/12/23 22:30 Dose: Not Given Documented By: YUMI Discontinued Medications Acetaminophen (Acetaminophen 325 Mg Tab) 650 mg PO Q4 DEBORA Stop: 09/11/23 22:59 Last Admin: 08/12/23 23:08 Dose: Not Given Documented By: YUMI Dextrose (Dextrose 50% 50 Ml Syringe) 50 ml IV NOW ONE Stop: 08/12/23 18:11 Last Admin: 08/12/23 18:14 Dose: 50 ml Documented By: KACEY Piperacillin Sod/Tazobactam Sod (Zosyn) 4.5 gm in 120 mls @ 240 mls/hr IV NOW ONE Stop: 08/12/23 21:25 Last Infusion: 08/12/23 22:25 Dose: Infused Documented By: Admin: 08/12/23 21:32 Dose: 240 mls/hr Documented By: YUMI Dextrose (D5w) 1,000 mls @ 80 mls/hr IV .[id number] DEBORA Stop: 09/11/23 21:29 Last Admin: 08/12/23 22:39 Dose: 80 mls/hr Documented By: YUMI Vancomycin HCl 2,000 mg/ (Sodium Chloride) 540 mls @ 200 mls/hr IV NOW STA Stop: 08/13/23 00:28 Last Admin: 08/12/23 22:25 Dose: Not Given Documented By: YUMI Albumin Human (Albumin 25%) 25 gm in 100 mls @ 50 mls/hr IV ONE ONE Stop: 08/13/23 00:59 Last Infusion: 08/12/23 23:33 Dose: 0 mls/hr Documented By: Admin: 08/12/23 23:06 Dose: 50 mls/hr Documented By: YUMI Insulin Aspart (Insulin Aspart Per Unit Charge) 0 units SC ONE ONE Stop: 08/13/23 00:01 Last Admin: 08/13/23 00:43 Dose: Not Given Documented By: RAVI Co-signed By: IMAN Ioversol (Optiray 320 125ml) 118 ml IV ONCE ONE Stop: 08/12/23 19:13 Last Admin: 08/12/23 19:14 Dose: 118 ml Documented By: DIANE Oseltamivir Phosphate (Oseltamivir Phosphate 75 Mg Cap) 75 mg PO NOW STA; Protocol Stop: 08/12/23 20:51 Last Admin: 08/12/23 21:32 Dose: 75 mg Documented By: YUMI Potassium Chloride (Potassium Chloride Crtab 20 Meq Tabcr) 40 meq PO NOW STA Stop: 08/12/23 21:31 Last Admin: 08/12/23 22:39 Dose: 20 meq Documented By: YUMI Medical Decision Making Medical Records Attestation: I reviewed the patient's medical records. External medical records were obtained by [facility] case management to get the discharge summary on the patient's recent admission to [facility] [address]. Patient was admitted from July 27 to August 01, 2023. At that time he was diagnosed with progressive shortness of breath due to metastatic melanoma. The patient according to the documentation from [place] was admitted to the third floor telemetry unit was given IV Lasix. His oxygen was titrated to greater than 90%. He did not require oxygen. An echo was done and his left ventricular ejection fraction was 55%. Patient had a CT scan that was negative for pulmonary embolus but showed progressive metastatic disease to the lungs liver and bones. Patient had an oncology and palliative care consult. Patient was discharged in stable condition with stable oxygen saturation on room air. Patient's BNP during his time at [place] was 952 his troponin high-sensitivity was 34 and his respiratory bio fire was negative. Laboratory Data Attestation: I reviewed the patient's lab results. 08/12/23 17:03 08/12/23 17:03 Lab Results 08/12/23 08/12/23 08/12/23 Range/Units 17:03 18:09 18:23 WBC 9.84 (4.8-10.8) K/ul RBC 4.74 (4.70-6.10) M/uL Hgb 15.1 (14.0-18.0) g/dl Hct 42.4 (42.0-52.0) % MCV 89.5 (80.0-100.0) fL MCH 31.9 (25.0-34.0) pg MCHC 35.6 (32.0-36.0) g/dL RDW Std Deviation 55.4 H (36.4-46.3) fL RDW Coeff of Prasanth 17.0 H (11.5-14.5) % Plt Count 276 (130-400) K/uL MPV 9.0 L (9.4-12.4) fL Immature Gran % (Auto) 0.6 % Neut % (Auto) 78.6 % Lymph % (Auto) 11.0 % [place] % (Auto) 9.1 % Eos % (Auto) 0.4 % Baso % (Auto) 0.3 % Neut # (Auto) 7.73 H (1.40-6.50) K/uL Lymph # (Auto) 1.08 L (1.20-3.40) K/uL [place] # (Auto) 0.90 H (0.11-0.59) K/uL Eos # (Auto) 0.04 (0.00-0.50) K/uL Baso # (Auto) 0.03 (0.00-0.20) K/uL Immature Gran # (Auto) 0.06 (0.01-0.20) K/uL PT 12.1 H (9.0-12.0) Seconds INR 1.1 (0.9-1.1) APTT 30 (21-31) Seconds PTT Ratio 1.1 VBG pH 7.49 H (7.36-7.41) VBG pCO2 50 (38-50) mmHg VBG pO2 31 mmHg VBG HCO3 38 mmol/L VBG O2 Saturation < 60.0 % VBG Base Excess 12.7 mEq/L Sodium 136 (136-145) mmol/L Potassium 3.3 L (3.5-5.1) mmol/L Chloride 93 L (98-107) mmol/L Carbon Dioxide 31 (21-32) mmol/L Anion Gap 12 H (3-11) BUN 44 H (6-23) mg/dl Creatinine 1.23 (0.6-1.4) mg/dl Est Cr Clr Drug Dosing Not Reportable Est GFR ( Amer) 66.1 ml/min Est GFR (Non-Af Amer) 57.1 ml/min BUN/Creatinine Ratio 35.8 H (10-20) Glucose 38 L* (70-99(Fasting)) mg/dl POC Glucose 46 L* (70-99) mg/dl Calcium 8.7 (8.6-10.3) mg/dl Magnesium 1.7 (1.7-2.4) mg/dl Total Bilirubin 3.7 H (0.2-1.0) mg/dl AST 80 H (13-39) U/L ALT 37 (7-52) U/L Alkaline Phosphatase 709 H (34-104) U/L Troponin I High Sens 18.7 (0-20) pg/ml B-Natriuretic Peptide 114 H (0-100) pg/ml Total Protein 6.0 (6.0-8.3) gm/dl Albumin 2.8 L (3.4-5.0) gm/dl Globulin 3.2 (2.5-4.0) gm/dl Albumin/Globulin Ratio 0.9 (0.9-2) Lipase 21 (11-82) U/L Procalcitonin 0.53 H (0-0.5) ng/ml Urine Color Urine Appearance (Clear) Urine pH (4.5-7.5) Ur Specific Heron (1.000-1.030) Urine Protein (Negative) Urine Glucose (UA) (Negative) Urine Ketones (Negative) Urine Blood (Negative) Urine Nitrite (Negative) Urine Bilirubin (Negative) Urine Urobilinogen (Negative) Ur Leukocyte Esterase (Negative) Urine WBC (Auto) (0-5) /hpf Urine RBC (Auto) (0-4) /hpf U Hyaline Cast (Auto) (0-5) /lpf U Epithel Cells (Auto) (0-5) /lpf Urine Bacteria (Auto) (Negative) Nasal Influ A H1 2009 PCR (NotDetected) Adenovirus (PCR) (NotDetected) B. pertussis DNA (PCR) (NotDetected) B.parapertussis DNA PCR (NotDetected) C. pneumoniae DNA (PCR) (NotDetected) Coronavirus OC43 (PCR) (NotDetected) Coronavirus HKU1 (PCR) (NotDetected) Coronavirus 229E (PCR) (NotDetected) SARS-CoV-2 (PCR) (NotDetected) Coronavirus NL63 (PCR) (NotDetected) Human Metapneumovir PCR (NotDetected) Influenza Type B (PCR) (NotDetected) M. pneumoniae (PCR) (NotDetected) Parainfluenza 1 (PCR) (NotDetected) Parainfluenza 2 (PCR) (NotDetected) Parainfluenza 3 (PCR) (NotDetected) Parainfluenza 4 (PCR) (NotDetected) RSV (PCR) (NotDetected) Entero/Rhino (PCR) (NotDetected) 08/12/23 08/12/23 08/12/23 Range/Units 18:35 18:41 18:55 WBC (4.8-10.8) K/ul RBC (4.70-6.10) M/uL Hgb (14.0-18.0) g/dl Hct (42.0-52.0) % MCV (80.0-100.0) fL MCH (25.0-34.0) pg MCHC (32.0-36.0) g/dL RDW Std Deviation (36.4-46.3) fL RDW Coeff of Prasanth (11.5-14.5) % Plt Count (130-400) K/uL MPV (9.4-12.4) fL Immature Gran % (Auto) % Neut % (Auto) % Lymph % (Auto) % [place] % (Auto) % Eos % (Auto) % Baso % (Auto) % Neut # (Auto) (1.40-6.50) K/uL Lymph # (Auto) (1.20-3.40) K/uL [place] # (Auto) (0.11-0.59) K/uL Eos # (Auto) (0.00-0.50) K/uL Baso # (Auto) (0.00-0.20) K/uL Immature Gran # (Auto) (0.01-0.20) K/uL PT (9.0-12.0) Seconds INR (0.9-1.1) APTT (21-31) Seconds PTT Ratio VBG pH (7.36-7.41) VBG pCO2 (38-50) mmHg VBG pO2 mmHg VBG HCO3 mmol/L VBG O2 Saturation % VBG Base Excess mEq/L Sodium (136-145) mmol/L Potassium (3.5-5.1) mmol/L Chloride (98-107) mmol/L Carbon Dioxide (21-32) mmol/L Anion Gap (3-11) BUN (6-23) mg/dl Creatinine (0.6-1.4) mg/dl Est Cr Clr Drug Dosing Est GFR ( Amer) ml/min Est GFR (Non-Af Amer) ml/min BUN/Creatinine Ratio (10-20) Glucose (70-99(Fasting)) mg/dl POC Glucose 152 H (70-99) mg/dl Calcium (8.6-10.3) mg/dl Magnesium (1.7-2.4) mg/dl Total Bilirubin (0.2-1.0) mg/dl AST (13-39) U/L ALT (7-52) U/L Alkaline Phosphatase (34-104) U/L Troponin I High Sens (0-20) pg/ml B-Natriuretic Peptide (0-100) pg/ml Total Protein (6.0-8.3) gm/dl Albumin (3.4-5.0) gm/dl Globulin (2.5-4.0) gm/dl Albumin/Globulin Ratio (0.9-2) Lipase (11-82) U/L Procalcitonin (0-0.5) ng/ml Urine Color Dark Yellow Urine Appearance Clear (Clear) Urine pH 5.5 (4.5-7.5) Ur Specific Heron 1.014 (1.000-1.030) Urine Protein Negative (Negative) Urine Glucose (UA) Negative (Negative) Urine Ketones Negative (Negative) Urine Blood Negative (Negative) Urine Nitrite Positive A (Negative) Urine Bilirubin 1+ H (Negative) Urine Urobilinogen Positive H (Negative) Ur Leukocyte Esterase Trace H (Negative) Urine WBC (Auto) 1-5 (0-5) /hpf Urine RBC (Auto) 0-4 (0-4) /hpf U Hyaline Cast (Auto) 1-5 (0-5) /lpf U Epithel Cells (Auto) 5-10 H (0-5) /lpf Urine Bacteria (Auto) Negative (Negative) Nasal Influ A H1 2008 PCR DETECTED A (NotDetected) Adenovirus (PCR) Not Detected (NotDetected) B. pertussis DNA (PCR) Not Detected (NotDetected) B.parapertussis DNA PCR Not Detected (NotDetected) C. pneumoniae DNA (PCR) Not Detected (NotDetected) Coronavirus OC43 (PCR) Not Detected (NotDetected) Coronavirus HKU1 (PCR) Not Detected (NotDetected) Coronavirus 229E (PCR) Not Detected (NotDetected) SARS-CoV-2 (PCR) Not Detected (NotDetected) Coronavirus NL63 (PCR) Not Detected (NotDetected) Human Metapneumovir PCR Not Detected (NotDetected) Influenza Type B (PCR) Not Detected (NotDetected) M. pneumoniae (PCR) Not Detected (NotDetected) Parainfluenza 1 (PCR) Not Detected (NotDetected) Parainfluenza 2 (PCR) Not Detected (NotDetected) Parainfluenza 3 (PCR) Not Detected (NotDetected) Parainfluenza 4 (PCR) Not Detected (NotDetected) RSV (PCR) Not Detected (NotDetected) Entero/Rhino (PCR) Not Detected (NotDetected) Imaging Data Attestation: I personally reviewed and interpreted this imaging study as follows: My Impression: Chest x-ray: Diffuse metastatic disease Radiologist's Impression: Chest CTA 08/12/23 16:30 Exam(s): CTA CHEST IV Amt: 118 ml optiray 320 EXAM: CT Angiography Chest With Intravenous Contrast CLINICAL HISTORY: Reason for exam: SOB, eval for PE. TECHNIQUE: Axial computed tomographic angiography images of the chest with intravenous contrast. CTDI is 40.5 mGy and DLP is 893.74 mGy-cm. Automated exposure control was utilized for the study. A dose lowering technique was utilized adhering to the principles of ALARA. MIP reconstructed images were created and reviewed. COMPARISON: No relevant prior studies available. FINDINGS: Pulmonary arteries: Unremarkable. No acute pulmonary embolism. No acute pulmonary embolism. Aorta: Atherosclerotic changes of the aorta. No thoracic aortic aneurysm. Lungs: Extensive bilateral pulmonary metastasis, correlate for primary malignancy. No consolidation. Pleural space: Moderate bilateral pleural effusions. No pneumothorax. Heart: Unremarkable. No cardiomegaly. No significant pericardial effusion. No evidence of RV dysfunction. Bones/joints: Lytic lesions in the osseous structures, including the posterior ribs and spine, consistent with metastatic disease. Degenerative changes of the spine. No acute fracture. No dislocation. Soft tissues: Unremarkable. Lymph nodes: Unremarkable. No enlarged lymph nodes. Liver: Extensive hepatic metastasis. IMPRESSION: 1. No acute pulmonary embolism. 2. Extensive hepatic, pulmonary, and osseous metastasis. 3. Moderate bilateral pleural effusions. Electronically signed by: Iron Parra MD 08/12/23 19:50 PM Chest X-Ray 08/12/23 18:04 SINGLE VIEW CHEST CLINICAL HISTORY: Dyspnea FINDINGS: An AP, portable, upright chest radiograph is compared to study dated 01/24/2023 and correlated with chest CT dated 01/27/2023. The examination is degraded by portable technique and patient rotation. A right subclavian central venous infusion port is new from previous. The cardiomediastinal silhouette is unremarkable. Findings extensive/diffuse multifocal pulmonary metastatic disease are again noted. There are layering pleural effusions with dependent consolidation. No pneumothorax is seen. The skeletal structures are osteopenic. There are acute to subacute appearing left-sided rib fractures which are likely pathologic. IMPRESSION: 1. Findings of extensive/diffuse multifocal pulmonary metastatic disease are again noted. Correlate with the oncological history. 2. Layering pleural effusions with dependent consolidation. 3. Acute to subacute appearing left-sided rib fractures are likely pathologic. ACT 112: Negative or not required by law. Electronically signed by: Sean Nicole M.D. 08/12/2023 7:[address] 08/12/23 18:25 Exam(s): CT HEAD Without Contrast EXAM: CT Head Without Intravenous Contrast CLINICAL HISTORY: Reason for exam: weakness metastatic melanoma. TECHNIQUE: Axial computed tomography images of the head/brain without intravenous contrast. CTDI is 35.65 mGy and DLP is 624.41 mGy-cm. Automated exposure control was utilized for the study. A dose lowering technique was utilized adhering to the principles of ALARA. COMPARISON: No relevant prior studies available. FINDINGS: No acute intracranial hemorrhage. No midline shift or mass effect. The territorial patel-white matter differentiation is maintained throughout. Age-related cerebral volume loss. Periventricular and subcortical white matter hypoattenuation, consistent with chronic microangiopathy. The visualized orbits appear grossly unremarkable. The calvarium is intact. The visualized paranasal sinuses and mastoid air cells are grossly clear. IMPRESSION: No acute intracranial hemorrhage, midline shift, or mass effect. Electronically signed by: Iron Parra MD 08/12/23 19:49 PM ECG Data Attestation: I personally reviewed and interpreted this ECG as follows: Interpretation: Sinus rhythm with a rate of 91. IA 150 QRS [address] elevation or ST depression. [facility] Narrative 1805: The patient was evaluated in room A9. A complete history and physical exam was performed Cardiac monitoring: An order was placed for continuous cardiac monitoring. The monitor shows a rate of 90 with sinus rhythm interpreted by me Patient was seen during a time of extreme volume and extreme acuity in the emergency department. Nursing triage protocols were initiated and labs were drawn by protocol in the triage area. Patient's glucose was 38. Patient was given 1 amp of D50. 2100: Vital signs stable. Labs show white blood cell count 9.84 hemoglobin 15.1 coagulation studies within normal limits. VBG shows a venous pH of 7.49. Potassium 3.3. POC glucose improved after 1 amp of D50. Total bilirubin 3.7. Alkaline phosphatase 709. Patient is influenza positive. Imaging shows no pulmonary embolus but does show possible pathological fractures with bilateral pleural effusions. Given the patient is influenza positive, immunosuppressed, and has bilateral pleural effusions, the patient will be treated empirically for influenza as well as any superimposed bacterial pneumonia on the influenza. Patient treated with Tamiflu as well as vancomycin and Zosyn. Patient will be admitted to the [facility] team. Impression & Plan Influenza, Hypoglycemia, Metastatic melanoma, Pleural effusion, Pathologic rib fracture Discharge Plan Visit Data Chief Complaint: Shortness of Breath/Dyspnea Stated Complaint: SOB/FLUID BUILD UP,CANCER PATIENT, EDEMA HAND/FEET ED Provider: Gabino Shah Discharge Problem: Influenza, Hypoglycemia, Metastatic melanoma, Pleural effusion, Pathologic rib fracture Patient Disposition: Admitted As Inpatient Discharge Instructions Interventions: ED Discharge Assessment Last Done: 08/12/23 22:23 Discharge Problem: Pathologic rib fracture Qualifiers: Encounter type: initial encounter Qualified Code(s): M84.48XA - Pathological fracture, other site, initial encounter for fracture
[2023-08-12 18:38] LABS: Base Excess VBG 12.7 mEq/L; HCO3 VBG 38 mmol/L; Oxygen Saturation VBG < 60.0 %; PCO2 VBG 50 mmHg (38-50); PO2 VBG 31 mmHg; pH VBG 7.49 (7.36-7.41)
[2023-08-12] MEDS: OPTIRAY 320 125ml IV ONE (19:14)
[2023-08-12 19:17] LABS: Appearance Urine Clear (Clear); Bacteria Urine Automated Negative (Negative); Blood Urine Negative (Negative); Color Urine Dark Yellow; Glucose Urine UA Negative (Negative); Ketones Urine Negative (Negative); Leukocyte Esterase Urine Trace (Negative); Nitrite Urine Positive (Negative); Protein Urine Negative (Negative); RBC Urine Automated 0-4 /hpf (0-4); Specific Gravity Urine 1.014 (1.000-1.030); Urobilinogen Urine Positive (Negative); pH Urine 5.5 (4.5-7.5)
[2023-08-12 19:21] LABS: Bilirubin Urine 1+ (Negative)
--- NOTE | 2023-08-12 19:22 | XRay Report ---
SINGLE VIEW CHEST CLINICAL HISTORY: Dyspnea FINDINGS: An AP, portable, upright chest radiograph is compared to study dated 01/24/2023 and correlat ed with chest CT dated 01/27/2023. The examination is degraded by portable technique and patient rotat ion. A right subclavian central venous infusion port is new from previous. The cardiomediastinal yumiko houette is unremarkable. Findings extensive/diffuse multifocal pulmonary metastatic disease are again noted. There are layering pleural effusions with dependent consolidation. No pneumothorax is seen. T he skeletal structures are osteopenic. There are acute to subacute appearing left-sided rib fractures which are likely pathologic. IMPRESSION: 1. Findings of extensive/diffuse multifocal pulmonary metastatic disease are again noted. Correlate w ith the oncological history. 2. Layering pleural effusions with dependent consolidation. 3. Acute to subacute appearing left-sided rib fractures are likely pathologic. ACT 112: Negative or not required by law. Electronically signed by: Sean Nicole M.D. 08/12/2023 7:21 PM
--- NOTE | 2023-08-12 19:50 | CT Scan Report ---
Exam(s): CT HEAD Without Contrast EXAM: CT Head Without Intravenous Contrast CLINICAL HISTORY: Reason for exam: weakness metastatic melanoma. TECHNIQUE: Axial computed tomography images of the head/brain without intravenous contrast. CTDI is 35.65 mGy and DLP is 624.41 mGy-cm. Automated exposure control was utilized for the study. A dose lowering technique was utilized adhering to the principles of ALARA. COMPARISON: No relevant prior studies available. FINDINGS: No acute intracranial hemorrhage. No midline shift or mass effect. The territorial patel-white matter differentiation is maintained throughout. Age-related cerebral volume loss. Periventricular and subcortical white matter hypoattenuation, consistent with chronic microangiopathy. The visualized orbits appear grossly unremarkable. The calvarium is intact. The visualized paranasal sinuses and mastoid air cells are grossly clear. IMPRESSION: No acute intracranial hemorrhage, midline shift, or mass effect. Electronically signed by: Iron Parra MD 08/12/23 19:49 PM
--- NOTE | 2023-08-12 19:51 | CT Scan Report ---
Exam(s): CTA CHEST IV Amt: 118 ml optiray 320 EXAM: CT Angiography Chest With Intravenous Contrast CLINICAL HISTORY: Reason for exam: SOB, eval for PE. TECHNIQUE: Axial computed tomographic angiography images of the chest with intravenous contrast. CTDI is 40.5 mGy and DLP is 893.74 mGy-cm. Automated exposure control was utilized for the study. A dose lowering technique was utilized adhering to the principles of ALARA. MIP reconstructed images were created and reviewed. COMPARISON: No relevant prior studies available. FINDINGS: Pulmonary arteries: Unremarkable. No acute pulmonary embolism. No acute pulmonary embolism. Aorta: Atherosclerotic changes of the aorta. No thoracic aortic aneurysm. Lungs: Extensive bilateral pulmonary metastasis, correlate for primary malignancy. No consolidation. Pleural space: Moderate bilateral pleural effusions. No pneumothorax. Heart: Unremarkable. No cardiomegaly. No significant pericardial effusion. No evidence of RV dysfunction. Bones/joints: Lytic lesions in the osseous structures, including the posterior ribs and spine, consistent with metastatic disease. Degenerative changes of the spine. No acute fracture. No dislocation. Soft tissues: Unremarkable. Lymph nodes: Unremarkable. No enlarged lymph nodes. Liver: Extensive hepatic metastasis. IMPRESSION: 1. No acute pulmonary embolism. 2. Extensive hepatic, pulmonary, and osseous metastasis. 3. Moderate bilateral pleural effusions. Electronically signed by: Iron Parra MD 08/12/23 19:50 PM
[2023-08-12 20:07] LABS: Adenovirus PCR Not Detected (NotDetected); Bordetella parapertussis PCR Not Detected (NotDetected); Bordetella pertussis PCR Not Detected (NotDetected); Chlamydia pneumoniae PCR Not Detected (NotDetected); Coronavirus 229E PCR Not Detected (NotDetected); Coronavirus CoV-2 (COVID19)PCR Not Detected (NotDetected); Coronavirus HKU1 PCR Not Detected (NotDetected); Coronavirus NL63 PCR Not Detected (NotDetected); Coronavirus OC43PCR Not Detected (NotDetected); Human Metapneumovirus PCR Not Detected (NotDetected); Influenza A (H1 2009) PCR DETECTED (NotDetected); Influenza B PCR Not Detected (NotDetected); Mycoplasma pneumoniae PCR Not Detected (NotDetected); Parainfluenza Virus 1 PCR Not Detected (NotDetected); Parainfluenza Virus 2 PCR Not Detected (NotDetected); Parainfluenza Virus 3 PCR Not Detected (NotDetected); Parainfluenza Virus 4 PCR Not Detected (NotDetected); Respiratory Syncytial VirusPCR Not Detected (NotDetected); Rhinovirus/Enterovirus PCR Not Detected (NotDetected)
[2023-08-12] MEDS ORDERED: VANCOMYCIN HCL 1,500 MG in SODIUM CHLORIDE 0.9% 500 ML IV ONE (20:56)
[2023-08-12] MEDS ORDERED: VANCOMYCIN CONSULT ACTIVE PRN ×2 (20:56→21:49)
--- NOTE | 2023-08-12 21:24 | History & Physical Report ---
Date of Service August 12, 2023 Assessment & Plan (1) Comfort measures only status: Plan: -Will transition to comfort measures -Palliative medicine consult placed to assist with home hospice -Dilaudid for pain -Ativan, haldol for anxiety/agitation -Medications for secretions have been ordered -Will continue hypoglycemia protocol overnight to allow for family to come tomorrow Plan The patient was discussed with Dr. Smith at the time of admission History of Present Illness Chief Complaint: SOB Primary Care Provider: Sean Garcia MD Update: 2300 -After further discussions with the patient and his , the patient would like to transition to comfort measures -They would like to try and plan for home hospice -Comfort measures have been ordered Noble is a 73 year old male with a PMH significant for melanoma with metastases to the to the lungs, bone, liver, and lymph nodes (Follows with [facility]), DMII, HFpEF, CAD s/p PCI (LAD, D1, RCA), and HTN who presented to the [facility] ED on 08/12/23 with complaints of progressive SOB over the past week. Vitals remained stable. Labs were significant for a VBG pH of 7.49 but otherwise stable, AG of 12 with bicarb WNL, chloride of 93, potassium of 3.3, total bili of 3.7, AST of 80 alk phos of 709, UA positive for nitrites, with 1+ bili, trace leukocyte esterase, 5-10 epithelial cells, and negative for bacteria and WBC, with full respiratory biofire positive for rInfluenza A H1 2009. CT head/brain wo con was read as negative for acute findings. Chest xray was read as "1. Findings of extensive/diffuse multifocal pulmonary metastatic disease are again noted. Correlate with the oncological history. 2. Layering pleural effusions with dependent consolidation. 3. Acute to subacute appearing left-sided rib fractures are likely pathologic.". CTA of the chest was read as ". No acute pulmonary embolism. 2. Extensive hepatic, pulmonary, and osseous metastasis. 3. Moderate bilateral pleural effusions.". Prior to admission the patient was given 75 mg PO Tamiflu and ordered a dose of zosyn and vancomycin. At the time of the exam the patient was lying in bed in no acute distress with his bedside, history was mainly obtained from his . They explain that his recent chemotherapy has been on hold as his protein levels have been too low. His appetite has been horrible, has been too weak and has been lying on the cough to point that his tailbone is severely painful. states that he does not have a sore on his buttocks yet. When I ask the patient how he has been feeling lately he states "horrible". I explained my concerns for the progression of his cancer, the steep decline in his quality of life, and my concern that we are reaching the point where treating his medical conditions are causing more suffering than good. The patient's expressed understanding and concern for this as well. The patient expressed understand but states that he wants to continue to fight and receive treatment. His next round of Chemo was supposed to be next week. I explained that this will likely have to be delayed with his current Influenza infection. I explained that even trying to treat his recurrent hypoglycemia at this time will recurring a D5W drip which could make his swelling and pleural effusions even worse. We had a very long discussion regarding code status. I explained my concern that if he were to going into cardiac arrest and want to have CPR that it would be catastrophic to his body as he is having ongoing pathologic fractures in his ribs. I also explained my concern that if he were to require intubation he would likely never come off a ventilator with the severity of his lung mets. He and his expressed understanding, his expressed my same concerns. The patient was adamant that he wishes to be a full code at this time. Please refer to Dr. Smith's attestation for any changes to the treatment plan Allergies Allergy/AdvReac Type Severity Reaction Status Date / Time rosuvastatin [From Crestor] AdvReac Intermediate myalgia Verified 08/12/23 22:49 escitalopram AdvReac Mild Insomnia Verified 08/12/23 22:50 Home Medications Medication Instructions Recorded Confirmed Type pen needle, diabetic 31 gauge x #100 ea 11/23/18 08/12/23 Rx 09/23" (BD Ultra-Fine Short Pen Needle) hydrocortisone 2.5 % topical cream 1 appln PA BID PRN hemorrhoids #30 03/31/19 08/12/23 Rx with perineal applicator grams blood sugar diagnostic #200 ea 01/21/22 08/12/23 Rx Lift Chair #1 ea 06/04/23 08/12/23 Rx elevated toilet seat with support #1 ea 06/04/23 08/12/23 Rx rails acetaminophen 325 mg capsule 650 mg PO QID PRN Fever Or Pain 06/30/23 08/12/23 History loratadine 10 mg tablet (Claritin) 10 mg PO DAILY 06/30/23 08/12/23 History insulin NPH-regular 70-30 U-100 See Rx Instructions subcut .COMPLEX 07/09/23 08/12/23 History insulin 100 unit/mL subcutaneous pen naloxone 4 mg/actuation nasal 4 mg intranasal Q3M PRN opioid 07/09/23 08/12/23 Rx spray (Narcan) overdose #2 ea pantoprazole 20 mg tablet,delayed 20 mg PO DAILY #30 tabs 08/04/23 08/12/23 Rx release alprazolam 0.25 mg tablet 0.25 mg PO TID PRN anxiety #90 tabs 08/10/23 08/12/23 Rx oseltamivir 75 mg capsule (Tamiflu) 75 mg PO BID 5 days #10 caps 08/12/23 Rx tramadol 50 mg tablet 50 - 100 mg PO TID PRN pain 08/12/23 08/12/23 History trazodone 50 mg tablet 50 mg PO HS 08/12/23 08/12/23 History morphine concentrate 100 mg/5 mL 5 mg (0.25 mL) PO Q6H PRN pain #30 08/14/23 Rx (20 mg/mL) oral solution mL scopolamine base 1 mg over 3 days 1 patch transdermal Q3D PRN 08/14/23 Rx transdermal patch secretions #4 ea Past Med/Surg History Medical History Clavicular fracture Confusion Subarachnoid hemorrhage Right humeral fracture HFrEF (heart failure with reduced ejection fraction) Neurologic gait dysfunction Metastatic melanoma Right fibular fracture Pelvic mass Metastatic carcinoma Abnormal CT scan, chest Abnormal x-ray of thoracic spine Abnormal chest x-ray Left-sided chest wall pain Thoracic radiculopathy Pain of left scapula Myalgia Left shoulder pain Bilateral shoulder pain Coronary artery disease Chest pain Type 2 diabetes mellitus treated with insulin Cough Asymptomatic microscopic hematuria Medicare annual wellness visit, subsequent Prostate cancer screening COVID-19 virus infection Tested positive on March 23, 2020 Herpes zoster of eye Exposure to COVID-19 virus History of SCC (squamous cell carcinoma) of skin Personal history of malignant melanoma of skin Actinic keratoses Asthmatic bronchitis Benign essential hypertension Eye problems GERD without esophagitis Hypercholesterolemia Hyperlipidemia Need for influenza vaccination Open wound, hand Prostate cancer screening Type 2 diabetes mellitus Surgical History Status post coronary artery stent placement Hx of cataract removal with insertion of prosthetic lens bilat Mar 2022 History of tonsillectomy History of adenoidectomy History of shoulder surgery History of elbow surgery History of arthroscopy of right knee History of decompression of median nerve Family History Other No pertinent family history Social History Smoking Status: Never smoker Hx Alcohol Use: No Hx Substance Use: No Preferred Language: Thai Communication Ability: Effective Visual Impairment: No Limitations Hearing Ability: Normal Dental Assistant Instructor Required: No Beliefs That Will Affect Care: None marital status: Current Living Situation: Spouse current occupational status: employed and retired How many Children do You have Comment: 1 adopted daughter Feels Safe at Home: Yes Childhood Exposure to Second-Hand Smoke: No Diet: regular caffeine: No Dental Care, Regularly: Yes Physical Activity Frequency: Does not Exercise Seatbelt Use: always Sunscreen Use: Yes Assistive Devices: Cane, Walker and Wheelchair Physical Exam Physical Exam: Physical Exam: General: In no acute distress, cachectic and severely malnourished HEENT: Significant BL tempora wasting, no scleral icterus, pupils around round, symmetrical, and reactive to light, dry mucus membranes, trachea midline, no thyromegaly Chest/Pulm: No respiratory distress, symmetrical chest expansion, scattered rales and rhonchi throughout Cardiac: RRR, no murmurs noted Abdomen: noted to have abdominal ascites, normoactive bowel sounds, soft and non-tender to palpation throughout Musculoskeletal: Recently repaired right clavicular fracture noted, no obvious trauma on the rest of the exam Extremities: Radial, dorsalis pedis, and posterior tibial pulses are intact and symmetrical, 3+ pitting edema noted in the BL LE's Skin: extensive bruising in various stages of healing on the BL upper extremities Neuro: Alert and oriented to person, place, month, year, and president, no focal defects, no tremors noted Psych: No acute distress, calm and cooperative during the exam Results & Data Results & Data Vital Signs (Past 12 Hours) Vital Signs Temp Pulse Pulse Resp BP BP Pulse Ox 08/12/23 20:41 78 22 114/71 94 08/12/23 18:29 08/12/23 18:23 87 18 120/75 96 08/12/23 18:11 89 08/12/23 16:25 94 08/12/23 16:25 36.2 C L 90 16 102/67 94 O2 Del Method 08/12/23 20:41 Room Air 08/12/23 18:29 Room Air 08/12/23 18:23 Room Air 08/12/23 18:11 08/12/23 16:25 Room Air 08/12/23 16:25 Room Air Laboratory Results Abnormal lab results 08/12/23 08/12/23 08/12/23 Range/Units 17:03 18:09 18:23 RDW Std Deviation 55.4 H (36.4-46.3) fL RDW Coeff of Prasanth 17.0 H (11.5-14.5) % MPV 9.0 L (9.4-12.4) fL Neut # (Auto) 7.73 H (1.40-6.50) K/uL Lymph # (Auto) 1.08 L (1.20-3.40) K/uL Emery # (Auto) 0.90 H (0.11-0.59) K/uL PT 12.1 H (9.0-12.0) Seconds VBG pH 7.49 H (7.36-7.41) Potassium 3.3 L (3.5-5.1) mmol/L Chloride 93 L (98-107) mmol/L Anion Gap 12 H (3-11) BUN 44 H (6-23) mg/dl BUN/Creatinine Ratio 35.8 H (10-20) Glucose 38 L* (70-99(Fasting)) mg/dl POC Glucose 46 L* (70-99) mg/dl Total Bilirubin 3.7 H (0.2-1.0) mg/dl AST 80 H (13-39) U/L Alkaline Phosphatase 709 H (34-104) U/L B-Natriuretic Peptide 114 H (0-100) pg/ml Albumin 2.8 L (3.4-5.0) gm/dl Procalcitonin 0.53 H (0-0.5) ng/ml Urine Nitrite (Negative) Urine Bilirubin (Negative) Urine Urobilinogen (Negative) Ur Leukocyte Esterase (Negative) U Epithel Cells (Auto) (0-5) /lpf Nasal Influ A 2008 PCR (NotDetected) 08/12/23 08/12/23 08/12/23 Range/Units 18:35 18:41 18:55 RDW Std Deviation (36.4-46.3) fL RDW Coeff of Prasanth (11.5-14.5) % MPV (9.4-12.4) fL Neut # (Auto) (1.40-6.50) K/uL Lymph # (Auto) (1.20-3.40) K/uL Emery # (Auto) (0.11-0.59) K/uL PT (9.0-12.0) Seconds VBG pH (7.36-7.41) Potassium (3.5-5.1) mmol/L Chloride (98-107) mmol/L Anion Gap (3-11) BUN (6-23) mg/dl BUN/Creatinine Ratio (10-20) Glucose (70-99(Fasting)) mg/dl POC Glucose 152 H (70-99) mg/dl Total Bilirubin (0.2-1.0) mg/dl AST (13-39) U/L Alkaline Phosphatase (34-104) U/L B-Natriuretic Peptide (0-100) pg/ml Albumin (3.4-5.0) gm/dl Procalcitonin (0-0.5) ng/ml Urine Nitrite Positive A (Negative) Urine Bilirubin 1+ H (Negative) Urine Urobilinogen Positive H (Negative) Ur Leukocyte Esterase Trace H (Negative) U Epithel Cells (Auto) 5-10 H (0-5) /lpf Nasal Influ A 2008 PCR DETECTED A (NotDetected) 08/12/23 Range/Units 22:03 RDW Std Deviation (36.4-46.3) fL RDW Coeff of Prasanth (11.5-14.5) % MPV (9.4-12.4) fL Neut # (Auto) (1.40-6.50) K/uL Lymph # (Auto) (1.20-3.40) K/uL Emery # (Auto) (0.11-0.59) K/uL PT (9.0-12.0) Seconds VBG pH (7.36-7.41) Potassium (3.5-5.1) mmol/L Chloride (98-107) mmol/L Anion Gap (3-11) BUN (6-23) mg/dl BUN/Creatinine Ratio (10-20) Glucose (70-99(Fasting)) mg/dl POC Glucose 61 L* (70-99) mg/dl Total Bilirubin (0.2-1.0) mg/dl AST (13-39) U/L Alkaline Phosphatase (34-104) U/L B-Natriuretic Peptide (0-100) pg/ml Albumin (3.4-5.0) gm/dl Procalcitonin (0-0.5) ng/ml Urine Nitrite (Negative) Urine Bilirubin (Negative) Urine Urobilinogen (Negative) Ur Leukocyte Esterase (Negative) U Epithel Cells (Auto) (0-5) /lpf Nasal Influ A H1 2009 PCR (NotDetected) Diagnostic Findings Chest CTA 08/12/23 16:30 Exam(s): CTA CHEST IV Amt: 118 ml optiray 320 EXAM: CT Angiography Chest With Intravenous Contrast CLINICAL HISTORY: Reason for exam: SOB, eval for PE. TECHNIQUE: Axial computed tomographic angiography images of the chest with intravenous contrast. CTDI is 40.5 mGy and DLP is 893.74 mGy-cm. Automated exposure control was utilized for the study. A dose lowering technique was utilized adhering to the principles of ALARA. MIP reconstructed images were created and reviewed. COMPARISON: No relevant prior studies available. FINDINGS: Pulmonary arteries: Unremarkable. No acute pulmonary embolism. No acute pulmonary embolism. Aorta: Atherosclerotic changes of the aorta. No thoracic aortic aneurysm. Lungs: Extensive bilateral pulmonary metastasis, correlate for primary malignancy. No consolidation. Pleural space: Moderate bilateral pleural effusions. No pneumothorax. Heart: Unremarkable. No cardiomegaly. No significant pericardial effusion. No evidence of RV dysfunction. Bones/joints: Lytic lesions in the osseous structures, including the posterior ribs and spine, consistent with metastatic disease. Degenerative changes of the spine. No acute fracture. No dislocation. Soft tissues: Unremarkable. Lymph nodes: Unremarkable. No enlarged lymph nodes. Liver: Extensive hepatic metastasis. IMPRESSION: 1. No acute pulmonary embolism. 2. Extensive hepatic, pulmonary, and osseous metastasis. 3. Moderate bilateral pleural effusions. Electronically signed by: Iron Parra MD 08/12/23 19:50 PM Chest X-Ray 08/12/23 18:04 SINGLE VIEW CHEST CLINICAL HISTORY: Dyspnea FINDINGS: An AP, portable, upright chest radiograph is compared to study dated 01/24/2023 and correlated with chest CT dated 01/27/2023. The examination is degraded by portable technique and patient rotation. A right subclavian central venous infusion port is new from previous. The cardiomediastinal silhouette is unremarkable. Findings extensive/diffuse multifocal pulmonary metastatic disease are again noted. There are layering pleural effusions with dependent consolidation. No pneumothorax is seen. The skeletal structures are osteopenic. There are acute to subacute appearing left-sided rib fractures which are likely pathologic. IMPRESSION: 1. Findings of extensive/diffuse multifocal pulmonary metastatic disease are again noted. Correlate with the oncological history. 2. Layering pleural effusions with dependent consolidation. 3. Acute to subacute appearing left-sided rib fractures are likely pathologic. ACT 112: Negative or not required by law. Electronically signed by: Sean Nicole M.D. 08/12/2023 7:[address] 08/12/23 18:25 Exam(s): CT HEAD Without Contrast EXAM: CT Head Without Intravenous Contrast CLINICAL HISTORY: Reason for exam: weakness metastatic melanoma. TECHNIQUE: Axial computed tomography images of the head/brain without intravenous contrast. CTDI is 35.65 mGy and DLP is 624.41 mGy-cm. Automated exposure control was utilized for the study. A dose lowering technique was utilized adhering to the principles of ALARA. COMPARISON: No relevant prior studies available. FINDINGS: No acute intracranial hemorrhage. No midline shift or mass effect. The territorial patel-white matter differentiation is maintained throughout. Age-related cerebral volume loss. Periventricular and subcortical white matter hypoattenuation, consistent with chronic microangiopathy. The visualized orbits appear grossly unremarkable. The calvarium is intact. The visualized paranasal sinuses and mastoid air cells are grossly clear. IMPRESSION: No acute intracranial hemorrhage, midline shift, or mass effect. Electronically signed by: Iron Parra MD 08/12/23 19:49 PM ECG Additional Comments: Sinus rhythm with Premature atrial complexes with Aberrant conduction Right bundle branch block Abnormal ECG When compared with ECG of 17-DEC-2016 12:46, Premature ventricular complexes are no longer Present Aberrant conduction is now Present Right bundle branch block has replaced Non-specific intra-ventricular conduction delay Code Status & VTE Plan Code Status Full code VTE Prophylaxis Plan VTE Prophylaxis will be ordered: Yes Supervising Physician Co-Signing Physician Notes Attending addendum: I have physically seen this patient, have supervised the HAMILTON's activities, and agree with the H&P unless as otherwise noted. Assessment and Plan: Comfort measures only- Palliative medicine consult Consideration for home hospice Ativan and Haldol as noted for anxiety/agitation Dilaudid as noted for pain Atropine and Robinul for secretions Full comfort measures protocol PG Care Time/CCT Total # of Minutes Spent Total Time Spent with Patient: Total time spent is greater than 50% in coordination of care (as documented) at patient's floor/unit and/or counseling patient: [place] [address] INT INP/OBS CARE 3/75MIN Patient Type Established Medical Decision Making High Complexity Diagnoses Comfort measures only status Z51.5
[2023-08-12] MEDS ORDERED: CARBOHYDRATES FOR HYPOGLYCEMIA PO PRN (21:29)
[2023-08-12] MEDS ORDERED: GLUCOSE 40% GEL 15 GM TUBE PO PRN (21:29)
[2023-08-12] MEDS ORDERED: GLUCAGON FOR INJ 1 MG VIAL SQ PRN (21:29)
[2023-08-12] MEDS ORDERED: GLUCOSE 10 TAB/TUBE PO PRN (21:29)
[2023-08-12] MEDS: PIPERACILLIN/TAZOBACTAM 4.5 GM/120 ML BAG IV ONE (21:32)
[2023-08-12] MEDS: OSELTAMIVIR PHOSPHATE 75 MG CAP PO STA (21:32)
[2023-08-12] MEDS: VANCOMYCIN HCL 2,000 MG in SODIUM CHLORIDE 0.9% 500 ML IV STA (22:25)
[2023-08-12] MEDS: INSULIN ASPART PER UNIT CHARGE SC SCH (22:30)
[2023-08-12] MEDS: DEXTROSE 5% 1,000 ML IV SCH (22:39)
[2023-08-12] MEDS: POTASSIUM CHLORIDE CRTAB 20 MEQ TABCR PO STA (22:39)
[2023-08-12] MEDS: DEXTROSE 50% 50 ML SYRINGE IV PRN (22:56)
[2023-08-12] MEDS: ALBUMIN 25% 25 GM/100 ML VIAL IV ONE (23:06)
[2023-08-12] MEDS: ACETAMINOPHEN 325 MG TAB PO SCH (23:08)
[2023-08-12] MEDS ORDERED: GLYCOPYRROLATE 0.2 MG/ML VIAL IV PRN (23:18)
[2023-08-12] MEDS ORDERED: PROMETHAZINE HCL 12.5 MG in SODIUM CHLORIDE 0.9% 50 ML IV PRN (23:18)
[2023-08-12] MEDS ORDERED: LORazepam 0.5 MG in SYRINGE 0.25 ML IV PRN (23:18)
[2023-08-12] MEDS ORDERED: ATROPINE SULFATE 1% OP SOLN 5 ML BTL SL PRN (23:18)
[2023-08-12] MEDS ORDERED: HYOSCYAMINE SULFATE 0.125 MG TAB SL PRN (23:18)
[2023-08-12] MEDS ORDERED: ONDANSETRON 4 MG OD TAB SL PRN (23:18)
[2023-08-12] MEDS ORDERED: LORazepam 0.5 MG TAB PO PRN (23:18)
[2023-08-12] MEDS ORDERED: haloperidoL 1 MG TAB PO PRN (23:18)
[2023-08-13] MEDS: INSULIN ASPART PER UNIT CHARGE SC ONE (00:43)
[2023-08-13] MEDS: HYDROmorphone INJ 0.5 MG/0.5 ML SYR IV PRN (01:46)
[2023-08-13] MEDS ORDERED: PIPERACILLIN/TAZOBACTAM 4.5 GM in DEXTROSE 5% MINI-B 100 ML IV SCH (04:00)
--- OUTSIDE RECORDS SUMMARY | 2023-08-13 08:05 | External Medical Summary | Continuity of Care Document ---
Author Name Unknown Organization [facility] RM TG 003 Address [address] [place] [id number] Care Team Providers Care Successfactors Consultant Name Role Phone Sean Garcia Primary Care Physician [phone] [id number] Date(s): 07/17/23 - [facility]17/[facility] Radiation Therapy, Ground Floor [address] [facility] [place] [id number] [phone] Encounter Diagnosis Malignant melanoma(Discharge Diagnosis) - 07/17/23 Discharge Disposition: Home or Self Care Attending Physician: JS Pope Laura Referring Physician: DO Kaur Austin L Allergies, Adverse Reactions, Alerts Substance Reaction Severity Status atorvastatin insomnia Active Medications ALPRAZolam 0.25 mg oral tablet Start: 07/31/22 14:40:00 EDT, 1 tab, PO, bid, PRN: as needed for anxiety Start Date: 07/31/22 Status: Ordered aspirin 81 mg oral delayed release tablet Start: 07/31/22 14:40:00 EDT, 1 tab, PO, Daily Start Date: 07/31/22 Status: Ordered atorvastatin 20 mg oral tablet Start: 05/26/23 14:55:00 EST, 1 tab, PO, Daily Start Date: 05/26/23 Status: Ordered benzonatate 100 mg oral capsule Start: 05/26/23 14:55:00 EST, 1 cap, PO, Daily, PRN: cough and congestion Start Date: 05/26/23 Status: Ordered dapagliflozin 10 mg oral tablet Start: 06/05/23 10:30:00 EST, 1 tab, PO, Daily, Disp# 30 tab, Pharmacy: [facility] Start Date: 06/05/23 Stop Date: 07/05/23 Status: Ordered HYDROmorphone 4 mg oral tablet Start: 06/05/23 16:37:00 EST, 0.5-1 tab, PO, q6h, Disp# 12 tab, Refills: 0, PRN: pain - severe (7-10), Pharmacy: [facility]/pharmacy #[id number] Start Date: 06/05/23 Stop Date: 06/08/23 Status: Ordered Lasix 40 mg oral tablet Start: 06/05/23 10:31:00 EST, 1 tab, PO, Daily, Disp# 30 tab, Take 40mg once daily, if you notice a3lb weight gain overnight or 5lb weight gain over a week, take an additional 40mg that day, Pharmacy: [facility] Start Date: 06/05/23 Stop Date: 07/05/23 Status: Ordered metoprolol succinate 25 mg oral tablet, extended release Start: 06/05/23 10:30:00 EST, 1 tab, PO, Daily, Disp# 30 tab, Pharmacy: [facility] Start Date: 06/05/23 Stop Date: 07/05/23 Status: Ordered montelukast 10 mg oral tablet Start: 05/26/23 14:56:00 EST, 1 tab, PO, qPM, take during active chemotherapy Start Date: 05/26/23 Status: Ordered nitroglycerin 0.4 mg sublingual tablet Start: 09/09/22 15:21:00 EDT, 1 tab, SL, q5min, Disp# 25 tab, Refills: 1, not to exceed 3 doses/15 min--if pain persists, seek medical attention must be dispensed & stored in original containers,PRN: as needed for chest pain, Pharmacy: [facility]... Start Date: 09/09/22 Status: Ordered NovoLOG Mix 70/30 FlexPen subcutaneous suspension Start: 07/31/22 14:42:00 EDT, 25 unit =, subQ, Daily Start Date: 07/31/22 Status: Ordered omeprazole 20 mg oral delayed release capsule Start: 05/26/23 14:55:00 EST, 1 cap, PO, Daily, PRN: heartburn Start Date: 05/26/23 Status: Ordered Plavix 75 mg oral tablet Start: 10/30/22 7:48:00 EDT, 1 tab, PO, Daily, Disp# 90 tab, Refills: 1, Pharmacy: [facility]/pharmacy #[id number] Start Date: 10/30/22 Status: Ordered prochlorperazine 10 mg oral tablet Start: 05/26/23 14:57:00 EST, 1 tab, PO, tid, use for CINV, PRN: nausea and vomiting Start Date: 05/26/23 Status: Ordered traZODone 50 mg oral tablet Start: 06/05/23 13:28:00 EST, See Instructions, Disp# 30 tab, 0.5 tab nightly as needed for insomnia, Pharmacy: [facility] Start Date: 06/05/23 Status: Ordered Problem List Condition Confirmation Course Effective Dates Status H ealth Status Informant Coronary artery disease involving [place] heart Confirmed Active Essential hypertension Confirmed Active Malignant melanoma Confirmed Active Mixed hyperlipidemia Confirmed Active Type 2 diabetes mellitus with insulin therapy Confirmed Active Diagnosis Diagnosis Type Effective Dates Health Status Cl inical Service Informant Malignant melanoma Discharge Diagnosis 07/17/23 Procedures Procedure Date Related Diagnosis Body Site Status Elbow Completed Knee, Rt Completed Rotator cuff Completed Social History Social History Type Response Smoking Status Never smoked cigaret johnny Sex Male Patient Care team information Care Team Personnel Name: Jovany Cadena Ryan Position: Pharmacist Member Role: Pharmacy - Lifetime Name: MD Radha, Sean Blood Position: Referring DIRECT Member Role: Primary Care Provider Address: Address: [address] [place] [address] [place] Name: Jovany Salazar Kyle Position: Pharmacist Member Role: Pharmacy - Lifetime Address: Address: [address] [place] [address] Care Team Related Persons Name: GRACE FOY Address: home [address] [place] [address] [place] Name: PO MCWILLIAMS Address: home [address] [place], [place] [id number]
--- OUTSIDE RECORDS SUMMARY | 2023-08-13 08:05 | External Medical Summary | Continuity of Care Document ---
Author Name Unknown Organization [facility]SY G CI S RM TG 003 Address [address] [place] [id number] Care Team Providers Care Precision Grinder Name Role Phone Sean Garcia Primary Care Physician [phone] [facility]counter [facility] [id number] Date(s): 07/10/23 - 07/10/23 [facility] HS[facility]lette G CHANDRAKANT S RM TG003 [facility] Radiation Therapy, Ground Floor [address] [facility] [place] [address] [phone] Discharge Disposition: Home or Self Care Attending [...] tab, PO, Daily, Disp# 30 tab, Pharmacy: [facility] Start Date: 06/05/23 Stop Date: 07/05/23 Status: Ordered HYDROmorphone 4 mg oral tablet Start: 06/05/23 16:37:00 EST, 0.5-1 tab, PO, q6h, Disp# 12 tab, Refills: 0, PRN: pain - severe (7-10), Pharmacy: [facility]/pharmacy #[id number] Start Date: 06/05/23 Stop Date: 06/08/23 Status: Ordered Lasix 40 mg oral tablet Start: 06/05/23 10:31:00 EST, 1 tab, PO, Daily, Disp# 30 tab, Take 40mg once daily, if you notice a3lb weight gain overnight or 5lb weight gain over a week, take an additional 40mg that day, Pharmacy: [facility] Start Date: 06/05/23 Stop Date: 07/05/23 Status: Ordered metoprolol succinate 25 mg oral tablet, extended release Start: 06/05/23 10:30:00 EST, 1 tab, PO, Daily, Disp# 30 tab, Pharmacy: [facility] Start Date: 06/05/23 Stop [...] containers,PRN: as needed for chest pain, [facility] Start Date: 09/09/22 Status: [...] Daily, Disp# 90 tab, Refills: 1, Pharmacy: [facility]/pharmacy #[id number] Start Date: 10/30/22 Status: Ordered prochlorperazine 10 mg oral tablet Start: 05/26/23 14:57:00 EST, 1 tab, PO, tid, use for CINV, PRN: nausea and vomiting Start Date: 05/26/23 Status: Ordered traZODone 50 mg oral tablet Start: 06/05/23 13:28:00 EST, See Instructions, Disp# 30 tab, 0.5 tab nightly as needed for insomnia, Pharmacy: [facility] Start Date: 06/05/23 Status: Ordered Problem List Condition Confirmation Course Effective Dates Status H ealth Status Informant Coronary artery disease involving [place] heart Confirmed Active Essential hypertension Confirmed Active Mixed hyperlipidemia Confirmed Active Type 2 diabetes mellitus with insulin therapy Confirmed Active Procedures Procedure Date Related Diagnosis Body Site Status Elbow Completed Knee, Rt Completed Rotator cuff Completed Social History Social History Type Response Smoking Status Never smoked cigaret johnny Sex Male Patient Care team information Care Team Personnel Name: Jovany Cadena Ryan Position: Pharmacist Member Role: Pharmacy - Lifetime Name: MD Radha, Sean Blood Position: Referring DIRECT Member Role: Primary Care Provider Address: Address: [address] [place] [id number] [place] Name: Jovany Salazar Kyle Position: Pharmacist Member Role: Pharmacy - Lifetime Address: Address: [address] [place] [id number] [place] Care Team Related Persons Name: GRACE FOY Address: home [address] [place] [address] [place] Name: PO MCWILLIAMS Address: home [address] [place], [place] [id number]
--- NOTE | 2023-08-13 08:55 | Communication Note ---
Date of Service: August 13, 2023 Brief Pall Med Note Consult received and appreciated Chart reviewed Patient presented for EOL care and elected EMAIL PRODUCTION SPECIALIST with desire for home hospice dc There are no acute/refractory issues noted on chart review that would warrant an urgent inpatient specialty pall med consult. Symptoms appear well managed and nursing documents patient is comfortable. Discharge planning to be handled by care mgt, who can review home hospice options with pt/family and activate the referral/coordinate their dc. I will decline this consult. I have notified ordering provider by [place] text. Patient not seen, NO charge submitted. Thank you for allowing us to participate in the ongoing care of this patient. Please don't hesitate to call or page with any additional concerns. Dr. Georgia Cornejo DNP Director, Palliative Care
[2023-08-13] MEDS: PANTOprazole 40 MG TAB PO SCH (08:57)
[2023-08-13] MEDS ORDERED: CLOPIDOGREL BISULFATE 75 MG TAB PO SCH (09:00)
[2023-08-13] MEDS ORDERED: ASPIRIN 81 MG ECTAB PO SCH (09:00)
[2023-08-13] MEDS ORDERED: OSELTAMIVIR PHOSPHATE 75 MG CAP PO SCH (09:00)
[2023-08-13] MEDS ORDERED: ACETAMINOPHEN 1,000 MG/100 ML VIAL IV PRN (17:33)
[2023-08-13] MEDS: ACETAMINOPHEN 1,000 MG/100 ML VIAL IV STA (17:40)
[2023-08-13] MEDS: MoRPHine SULFATE 2 MG/ML CARP IV PRN (17:45)
[2023-08-13] MEDS: ONDANSETRON INJ 2 MG/ML 2 ML VIAL IV PRN (18:29)
[2023-08-13] MEDS ORDERED: ATORVASTATIN 20 MG TAB PO SCH (21:00)
--- NOTE | 2023-08-13 22:28 | Hospitalist Progress Note ---
Date of Service August 13, 2023 Assessment & Plan (1) Comfort measures only status: Plan: -Will transition to comfort measures -Dilaudid for pain -Ativan, haldol for anxiety/agitation -Medications for secretions have been ordered -Patient will be discharged in AM. was cOncerned over pain medicine being sedative, however patient and family agreed on continuing opiates. Plan The patient was discussed with Dr. Smith at the time of admission Admission and Anticipated Discharge Date Admission Date: August 12, 2023 Subjective Patient is resting comofrtably. Review of Systems Review of Systems: All systems reviewed & are unremarkable except as noted in HPI & below Physical Exam Physical Exam: General: In no acute distress, cachectic and severely malnourished HEENT: Significant BL tempora wasting, no scleral icterus, pupils around round, symmetrical, and reactive to light, trachea midline, no thyromegaly Neuro: Alert and oriented to person, place, month, year, and president, no focal defects, no tremors noted Psych: No acute distress, calm and cooperative during the exam Results & Data Results & Data Vital Signs (Past 12 Hours) Vital Signs O2 Del Method 08/13/23 21:34 Room Air PG Care Time/CCT Total # of Minutes Spent Total Time Spent with Patient: Total time spent is greater than 50% in coordination of care (as documented) at patient's floor/unit and/or counseling patient: Coding Level of Care Code 97035 SUB INP/OBS CARE 2/35MIN Diagnoses Comfort measures only status Z51.5
--- NOTE | 2023-08-14 12:51 | Discharge Summary ---
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 Vitals remained stable. Labs were significant for a VBG pH of 7.49 but otherwise stable, AG of 12 with bicarb WNL, chloride of 93, potassium of 3.3, total bili of 3.7, AST of 80 alk phos of 709, UA positive for nitrites, with 1+ bili, trace leukocyte esterase, 5-10 epithelial cells, and negative for bacteria and WBC, with full respiratory biofire positive for rInfluenza A H1 2008. CT head/brain wo con was read as negative for acute findings. Chest xray was read as "1. Findings of extensive/diffuse multifocal pulmonary metastatic disease are again noted. Correlate with the oncological history. 2. Layering pleural effusions with dependent consolidation. 3. Acute to subacute appearing left-sided rib fractures are likely pathologic.". CTA of the chest was read as ". No acute pulmonary embolism. 2. Extensive hepatic, pulmonary, and osseous metastasis. 3. Moderate bilateral pleural effusions.". Prior to admission the patient was given 75 mg PO Tamiflu and ordered a dose of zosyn and vancomycin. At the time of the exam the patient was lying in bed in no acute distress with his bedside, history was mainly obtained from his . They explain that his recent chemotherapy has been on hold as his protein levels have been too low. His appetite has been horrible, has been too weak and has been lying on the cough to point that his tailbone is severely painful. states that he does not have a sore on his buttocks yet. When I ask the patient how he has been feeling lately he states "horrible". I explained my concerns for the progression of his cancer, the steep decline in his quality of life, and my concern that we are reaching the point where treating his medical conditions are causing more suffering than good. The patient's expressed understanding and concern for this as well. The patient expressed understand but states that he wants to continue to fight and receive treatment. His next round of Chemo was supposed to be next week. I explained that this will likely have to be delayed with his current Influenza infection. I explained that even trying to treat his recurrent hypoglycemia at this time will recurring a D5W drip which could make his swelling and pleural effusions even worse. We had a very long discussion regarding code status. I explained my concern that if he were to going into cardiac arrest and want to have CPR that it would be catastrophic to his body as he is having ongoing pathologic fractur es in his ribs. I also explained my concern that if he were to require intubation he would likely never come off a ventilator with the severity of his lung mets. He and his expressed understanding, his expressed my same concerns. The patient was adamant that he wishes to be a full code at this time. Please refer to Dr. Smith's attestation for any changes to the treatment plan Principal Diagnosis comfort measures Discharge Exam General: In no acute distress, cachectic and severely malnourished HEENT: Significant BL tempora wasting, no scleral icterus, pupils around round, symmetrical, and reactive to light, trachea midline, no thyromegaly Neuro: Alert and oriented to person, place, month, year, and president, no focal defects, no tremors noted Psych: No acute distress, calm and cooperative during the exam Discharge Data Allergies Allergy/AdvReac Type Severity Reaction Status Date / Time rosuvastatin [From Crestor] AdvReac Intermediate myalgia Verified 08/12/23 22:49 escitalopram AdvReac Mild Insomnia Verified 08/12/23 22:50 Consultations 08/12/23 20:56 ED Decision to Admit Stat Ordered Studies 08/12/23 16:30 CT angio chest PE protocol Stat 08/12/23 18:25 CT head/brain wo con Stat Hospital Course (1) Comfort measures only status: -Will transition to comfort measures -Dilaudid for pain -Ativan, haldol for anxiety/agitation -Medications for secretions have been ordered Patient discharged on home hospice. Updated . will have discussion with home hospice agency regarding next steps. Comfort medications noted below. Plan The patient was discussed with Dr. Smith at the time of admission Total Time Total Time Spent Total Time Spent (In Minutes): 31 Discharge Plan Discharge Items Patient Disposition: Hospice - Home Reason For Visit: SOB, INFLEUNZA, PLEURAL EFFUSIONS Discharge Diagnosis: SOB Activity: Resume your previous activity Non-emergency contact: Primary Care Provider Call non-emergency contact if: you have any medication questions Follow-up/Referrals: Sean Garcia MD [Primary Care Provider] - Diet: Regular Addtl Attending Provider Instructions: discharged on home hospice Pending Studies at Discharge: No Stand-Alone Forms: My [facility] Medications and DC Order Prescriptions: New oseltamivir [Tamiflu] 75 mg capsule 75 mg PO BID 5 Days Qty: 10 0RF morphine concentrate 100 mg/5 mL (20 mg/mL) solution 5 mg PO Q6H PRN (Reason: pain) Qty: 30 0RF scopolamine base 1 mg over 3 days patch 3 day 1 patch transdermal Q3D PRN (Reason: secretions) Qty: 4 0RF Continued hydrocortisone 2.5 % cream with perineal applicator 1 appln TN BID PRN (Reason: hemorrhoids) Qty: 30 5RF (DME) blood sugar diagnostic Strip See Dose Instructions .ROUTE .MEDSUPPLY Qty: 200 3RF Dose Instruction: As directed Rx Instructions: OneTouchUltraBlueStrips, check three times a day E11.9, Z79.4 (DME) elevated toilet seat with support rails See Rx Instructions .Route .MEDSUPPLY Qty: 1 0RF Rx Instructions: As directed (DME) Lift Chair Misc See Rx Instructions .Route Qty: 1 0RF Rx Instructions: As directed pantoprazole 20 mg tablet,delayed release (DR/EC) 20 mg PO DAILY Qty: 30 5RF alprazolam 0.25 mg tablet 0.25 mg PO TID PRN (Reason: anxiety) Qty: 90 3RF (DME) pen needle, diabetic [BD Ultra-Fine Short Pen Needle] 31 gauge x 5/16" needle See Dose Instructions .ROUTE .MEDSUPPLY Qty: 100 3RF Dose Instruction: As directed Rx Instructions: As directed insulin NPH and regular human 100 unit/mL (70-30) insulin pen See Patient Comments subcut .COMPLEX Dose Instruction: 45 units in the morning, 30 units in the evening subcut ; Rx Instructions: 25 units in the morning, 25 units in the evening subcut PRN ; naloxone [Narcan] 4 mg/actuation spray,non-aerosol 4 mg intranasal Q3M PRN (Reason: opioid overdose) Qty: 2 0RF Rx Instructions: spray 1 dose into ONE nostril; alternate nostrils w each dose until help arrives acetaminophen 325 mg capsule 650 mg PO QID PRN (Reason: Fever Or Pain) loratadine [Claritin] 10 mg tablet 10 mg PO DAILY tramadol 50 mg tablet 50 - 100 mg PO TID PRN (Reason: pain) Rx Instructions: Take 1 or 2 tabs up to 3 times daily as needed for pain trazodone 50 mg tablet 50 mg PO HS Discontinued atorvastatin 20 mg tablet 20 mg PO HS Qty: 90 3RF clopidogrel 75 mg tablet 75 mg PO DAILY Qty: 90 3RF furosemide 40 mg tablet 40 mg PO DAILY Qty: 90 1RF spironolactone 25 mg tablet 25 mg PO DAILY Qty: 90 3RF Hold Instructions: Hypotension magnesium oxide 400 mg magnesium tablet 400 mg PO DAILY Qty: 90 3RF montelukast [Singulair] 10 mg tablet 10 mg PO QPM nitroglycerin [Nitrostat] 0.4 mg tablet, sublingual 0.4 mg sublingual Q5M PRN (Reason: chest pain) Qty: 25 2RF Rx Instructions: Take 1 tab sublingual every 5 min as needed for chest pain. Max 3 doses per episode. Call 911 if chest pain persists after 1st dose. aspirin 81 mg Tablet,Delayed Release (Dr/Ec) 81 mg PO DAILY Discharge Orders: Discharge Order (Routine); Ordered 08/14/23 Ordered By: Malik Damon/Other Patient Handouts: What Is Hospice?, Starting Hospice, Hospice- Caring for Your Loved One Admission Data Admit Date/Time: 08/12/23 21:19 Attending Provider: Malik Horta Admit Provider: Louis Smith Primary Care Provider: Sean Garcia Other Providers: Louis Smith; [facility] Other Interventions: Discharge Summary Assessment (RN) Last Done: 08/14/23 13:06 Coding Level of Care Code 08907 INP/OBS DISCH >30 MIN Diagnoses Comfort measures only status Z51.5
--- NOTE | 2023-08-15 05:50 | Electrocardiogram Report ---
Test Reason : Blood Pressure : / mmHG Vent. Rate : 091 BPM Atrial Rate : 091 BPM P-R Int : 150 ms QRS Dur : 136 ms QT Int : 420 ms P-R-T Axes : 037 262 039 degrees QTc Int : 516 ms Sinus rhythm with Premature ventricular complexes Right bundle branch block Abnormal ECG When compared with ECG of 17-DEC-2016 12:46, Right bundle branch block has replaced Non-specific intra-ventricular conduction delay Confirmed by Jose Cool ([id number]) on 08/15/2023 5:50:42 AM Referred By: REFERRED SELF Confirmed By:Jose Cool
== END 2023-08-14 14:43 | disposition hospice, home (50) | DRG 951 ==
LOC: ED 16:21 → SUATTDRO 21:19 → EDINP 21:19 → 3E 08-13 01:27